=== PATIENT | male | born 1945 | race Caucasian/White ===

== ENCOUNTER 2019-02-08 20:24 | Observation (INO) | payer MEDICARE ==
--- NOTE | 2019-02-08 21:08 | RAD ---
AP CHEST: 02/08/19 HISTORY: Chest pain. COMPARISON: 09/25/14. Mild cardiomegaly. Postop sternotomy changes. The lung pappas are clear. Vasculature normal. IMPRESSION: No acute abnormality. POS: AGW
[2019-02-08 21:38] LABS: #Basophils 0.1 thou/uL (0.0-0.2); #Eosinphils 0.1 thou/uL (0.0-0.7); #Monocytes 0.7 thou/uL (0.11-0.59); #Neutrophils 4.7 thou/uL (1.40-6.50); %Basophils 0.8 % (0.0-1.0); %Eosinophils 1.3 % (0.0-10.0); %Lymphocytes 26.5 % (21.0-51.0); %Monocytes 9.7 % (0.0-10.0); %Neutrophils 61.7 % (42.0-75.0); Hemoglobin 14.4 g/dL (14.0-18.0); Mean Corpuscular HGB CONC 34.2 g/dL (32.0-36.0); Mean Corpuscular Hemoglobin 29.5 pg (27.0-31.0); Mean Corpuscular Volume 86.4 fL (78.0-98.0); Mean Platelet Volume 7.5 fL (7.4-10.4); Platelet Count 215 thou/uL (130-400); RBC Distribution Width 12.5 % (11.5-14.5); Red Blood Cell (RBC) Count 4.88 mill/uL (4.70-6.10); White Blood Cell (WBC) Count 7.6 thou/uL (4.8-10.8)
[2019-02-08 21:59] LABS: ALT (SGPT) 77 U/L (8-55); AST (SGOT) 77 U/L (5-34); Albumin 3.9 g/dL (3.4-4.8); Alkaline Phosphatase 96 U/L (40-150); Anion Gap 15 mmol/L (10-20); BUN (Urea Nitrogen) 30 mg/dL (8.4-25.7); Bilirubin, Total 0.6 mg/dL (0.2-1.2); CK (CPK) 115 U/L (30-200); Calc. Creatinine Clearance 0 mL/min (70-130); Calcium 9.1 mg/dL (7.8-10.44); Carbon Dioxide 32 mmol/L (23-31); Chloride 97 mmol/L (98-107); Estimated GFR-MDRD 75; Globulin 2.7 g/dL (2.4-3.5); Glucose 97 mg/dL (83-110); Protein, Total 6.6 g/dL (5.8-8.1); Sodium 141 mmol/L (136-145)
[2019-02-08 22:06] LABS: Potassium 2.9 mmol/L (3.5-5.1)
[2019-02-09 01:13] LABS: Troponin I 0.013 ng/mL (< 0.028)
[2019-02-09] MEDS ORDERED: HYDROcodone/Acetaminophen 5/325 mg Tablet PO PRN (01:18)
[2019-02-09] MEDS ORDERED: Acetaminophen 325 MG TAB PO PRN (01:18)
[2019-02-09] MEDS ORDERED: Senokot S 8.6-50 MG TAB PO PRN (01:18)
[2019-02-09 04:15] LABS: #Eosinphils 0.1 thou/uL (0.0-0.7); #Monocytes 0.8 thou/uL (0.11-0.59); %Basophils 0.6 % (0.0-1.0); %Eosinophils 1.7 % (0.0-10.0); %Lymphocytes 28.4 % (21.0-51.0); %Monocytes 11.9 % (0.0-10.0); %Neutrophils 57.5 % (42.0-75.0); Hemoglobin 14.1 g/dL (14.0-18.0); Mean Corpuscular HGB CONC 33.2 g/dL (32.0-36.0); Mean Corpuscular Hemoglobin 28.7 pg (27.0-31.0); Mean Corpuscular Volume 86.4 fL (78.0-98.0); Mean Platelet Volume 7.2 fL (7.4-10.4); Platelet Count 214 thou/uL (130-400); RBC Distribution Width 12.5 % (11.5-14.5); Red Blood Cell (RBC) Count 4.91 mill/uL (4.70-6.10)
[2019-02-09 04:24] LABS: INR-International Normal Ratio 1.1; PTT 28.8 SEC (22.9-36.1); Prothrombin Time 14.3 SEC (12.0-14.7)
[2019-02-09 04:35] LABS: Anion Gap 12 mmol/L (10-20); BUN (Urea Nitrogen) 25 mg/dL (8.4-25.7); Calc. Creatinine Clearance 0 mL/min (70-130); Carbon Dioxide 31 mmol/L (23-31); Chloride 100 mmol/L (98-107); Estimated GFR-MDRD 83; Glucose 98 mg/dL (83-110); Potassium 3.1 mmol/L (3.5-5.1); Sodium 140 mmol/L (136-145)
[2019-02-09 04:39] LABS: Troponin I 0.018 ng/mL (< 0.028)
--- NOTE | 2019-02-09 05:43 | HP ---
CHIEF COMPLAINT: Chest pain. HISTORY OF PRESENT ILLNESS: Mr. Brunson is a 74-year-old male who reports to the emergency room today with complaints of chest pain, which started yesterday at 1700 hours. States he has been taking his nitroglycerin prior to arrival, which resolved his chest pain. No shortness of breath. No nausea, vomiting, abdominal pain, or other symptoms, although he does say that when the pain started, he was a little nauseated yesterday. Multiple hospitalizations for cardiac issues, history of an AK in October, which resulted in 4 stents. 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 Tovar at [facility] in [facility] specialized in stent placement with a failed graft. Primary hull line crew member is Dr. Abel in [place]. He reports that chest pain is substernal. Denies any radiation. Denies diaphoresis. Shortness of breath, sharp in nature, described as stabbing, resolved with nitroglycerin. Reports some chronic lower back pain, but no other pain symptoms. The patient's initial two troponins are undetectable. Other pertinent lab values: Potassium which is 2.9. The patient was given some potassium in the emergency room. The patient was subsequently admitted to the [facility] for further management. PAST MEDICAL HISTORY: 1. At least two MIs. 2. Two CABG failed grafts. 3. Placement of four stents in October of 2018. 4. He has had a CVA. 5. He has had a history of atrial fibrillation. 6. Hyperlipidemia. 7. Hypertension. 8. Spinal stenosis. SURGICAL HISTORY: 1. CABG x2. 2. Multiple heart catheterizations. 3. Stent placement x4 in October. 4. Hernia repair. PSYCHIATRIC HISTORY: None. SOCIAL HISTORY: The patient denies any alcohol or drug use. He is a former smoker, quit smoking more than 10 years ago. ALLERGIES: IODINE. HOME MEDICATIONS: 1. Zetia 10 mg 1 tablet once a day. 2. Plavix 75 mg once a day. 3. Amlodipine 10 mg once a day. 4. Hydralazine 100 mg t.i.d. 5. Eliquis 5 mg p.o. b.i.d. FAMILY HISTORY: Pertinent for extensive family history of coronary artery disease. REVIEW OF SYSTEMS: The patient endorses substernal chest pain intermittently since yesterday at 1700 hours, relieved with nitroglycerin. Denies any radiation of pain. Denies diaphoresis. Does report some nausea. Denies abdominal pain, diarrhea, or constipation. Denies any current chest pain. All other systems are reviewed and are negative unless mentioned in the HPI. PHYSICAL EXAMINATION: VITAL SIGNS: Blood pressure is 145/84, respirations 14, temperature is 98.5, pulse ox is 95% on room air. CONSTITUTIONAL: The patient appears pain free, is alert and oriented to person, place, and time. HEENT: Head is atraumatic and normocephalic. Eyes; eyelids are normal to inspection. Pupils are equally round and reactive to light. ENT; pharynx is normal. Mouth exam is normal. Mucous membranes are moist. NECK: Supple. Normal range of motion. Trachea is midline. RESPIRATORY: Chest, breath sounds are clear. CARDIOVASCULAR: Heart rate is irregularly irregular. Heart sounds are normal. ABDOMEN: Nontender. Bowel sounds are heard. BACK: Normal inspection. Normal range of motion. EXTREMITIES: Upper extremity, normal range of motion. Motor strength is normal. Radial pulses equal bilaterally. Lower extremity normal range of motion. Motor strength is normal. Pedal pulse is equal bilaterally. NEURO: Patient is alert and oriented to person, place, and time. Speech is normal. SKIN: Warm, dry, and normal in color. PSYCH: He has a normal affect. IMAGING: EKG shows beats per minute 62, rate of atrial fibrillation with controlled ventricular response. T-waves are flattened. RADIOLOGY: Chest x-ray shows no cardiomegaly and no congestive heart failure. No effusion. No free air. PERTINENT LABORATORY DATA: Sodium is 141, potassium is 2.9, chloride is 97, carbon dioxide is 32, gap is 15, BUN is 30, creatinine is 0.97, estimated GFR is 75, glucose is 97, calcium is 9.1. AST is 77, ALT is 77, alkaline phosphatase is 96. CK is 115, troponin x2 undetectable. BNP 147, protein 6.6. White blood cell count is 7.6, hemoglobin is 14.4, hematocrit is 42.1, and platelet count is 215. Coag panel is pending. ASSESSMENT AND PLAN: 1. Chest pain. We will trend troponins. We will ask [facility] for records from October of 2018 from last hospitalization for stent placements. Medical Auditor there is Dr. Tovar. Dr. Abel is patient's hull line crew member in [place]. We will await records and trending of troponins before consulting Cardiology, which will most likely happen as needed. We will monitor overnight. 2. Hypokalemia. Potassium 40 mEq was given to the patient in the emergency room. We will continue and give 40 mEq b.i.d. We will recheck electrolytes later this morning. 3. Chronic anticoagulation with Plavix and Eliquis. 4. Gastrointestinal prophylaxis has been started. 5. Hospital course will be dependent on clinical findings. Job ID: [id number]
[2019-02-09] MEDS ORDERED: Potassium Chloride 20 MEQ TAB PO SCH (08:00)
[2019-02-09] MEDS ORDERED: Potassium Chloride 20 MEQ TAB ONE (08:47)
[2019-02-09] MEDS ORDERED: Famotidine 20 MG TAB ONE (08:47)
[2019-02-09] MEDS ORDERED: Famotidine 20 MG TAB PO SCH (09:00)
[2019-02-09 11:01] VITALS: BMI 33.7
[2019-02-09 11:02] VITALS: BP 143/77; TEMP 98
[2019-02-09 12:39] LABS: Potassium 3.5 mmol/L (3.5-5.1)
--- NOTE | 2019-02-10 03:23 | DIS ---
DATE OF ADMISSION: 02/08/2019 DATE OF DISCHARGE: 02/09/2019 ALLERGIES: IODINE, STATINS WHICH CAUSE MYALGIA. CHIEF COMPLAINT: Chest pain. FINAL DIAGNOSES: 1. Angina secondary to demand ischemia from recent viral illness and resulting profound hypokalemia, resolved, acute coronary syndrome ruled out. 2. Hypokalemia, 2.9 on arrival, status post repletion, secondary to nausea and vomiting, resolved. 3. Coronary artery disease, followed closely by his scoring machine operator in [place], status post CABG x2 in the past, now status post stents to chronically occluded artery in October of this year, with normal cardiac PET scan in November, currently undergoing EECP treatments on a weekly basis with his scoring machine operator. 4. Hyperlipidemia, statin intolerant. 5. Atrial fibrillation, chronic, elevated CHADS-VASc score, anticoagulated with Eliquis. 6. Ischemic cardiomyopathy, euvolemic, with mild left ventricular dysfunction per the patient, last ejection fraction estimated at 49%. PROCEDURE PERFORMED: None. LABORATORY RESULTS: White blood cell count 7.0, hemoglobin 14.1, hematocrit 42.4, platelet count 214. INR 1.1. Sodium 140, potassium 3.5, previously 2.9 on admission, chloride 100, carbon dioxide 31, anion gap 12, BUN 25, creatinine 0.89, GFR 83. Troponin 0.027, 0.013, 0.018 respectively. AST 77, ALT 77, alkaline phosphatase 96. BNP 147. IMAGING RESULTS: Chest x-ray showed mild cardiomegaly and postop sternotomy changes in lung pappas, no acute abnormality. EKG shows sustained atrial fibrillation. No acute ST- or T-wave changes. CONSULTATIONS: None. VITAL SIGNS: Blood pressure 143/77, pulse is 71, O2 saturation is 96% on room air, temperature is 98 degrees. HOSPITAL COURSE: The patient is a very pleasant 74-year-old male with extensive coronary artery disease history, spanning over the past 30 years, followed closely by his scoring machine operator, who presented to the hospital with complaints of chest pain. Apparently, the patient has been suffering from a fairly severe viral illness that most of his family had caught as well. The patient reports that last Monday, he began vomiting and having diarrhea and this lasted for several days. His and daughter also suffered from the illness. The patient states that he canceled one of his EECP appointments secondary to feeling ill. Given that history, the patient states that he was outside, it was fairly warm, and he was mowing his lawn. He was sitting on his face burler when he began experiencing some chest discomfort. He did take a sublingual nitroglycerin, which did not relieve his pain, he took a second which eased it off, but he continued to have some chest discomfort, so he presented to the ER for further workup and treatment. On arrival, his potassium was fairly low at 2.9. His EKG did not show any dynamic changes. His troponin trended down. The patient felt much improved with IV hydration, and after his potassium was repleted. His presenting symptoms completely resolved. He has had no further chest pain since his arrival, and ACS has been ruled out. PHYSICAL EXAMINATION: GENERAL: The patient is awake, alert, well appearing, in no acute distress. HEENT: Head, atraumatic and normocephalic. Mucous membranes are moist. NECK: No JVD. No carotid bruits. Trachea is midline. CV: S1 and S2. Irregularly irregular. No appreciable murmurs, rubs, or gallops. LUNGS: Regular respiratory rate and pattern. Clear to auscultation bilaterally. ABDOMEN: Positive bowel sounds. Nontender. No masses. EXTREMITIES: No edema. +2 DP pulses bilaterally. SKIN: Warm and dry. No rashes. No discolorations. NEUROLOGIC: Cranial nerves 2 through 12 intact. The patient is nonfocal. CONDITION ON DISCHARGE: Stable. DISCHARGE MEDICATIONS: The patient will continue all of his home medications which include: 1. Eliquis 5 mg b.i.d. 2. Plavix 75 mg daily. 3. Zetia 10 mg daily. 4. Fish oil supplement daily. 5. Lasix 40 mg three times a week, along with potassium supplement daily of 20 mEq daily. 6. Hydralazine 100 mg p.o. b.i.d. p.r.n. 7. Doxazosin 4 mg daily. 8. Multivitamin one tablet daily. DISCHARGE DISPOSITION: Home. PLAN: The patient's cardiac history was discussed at length with the patient, along with his regular visits with his scoring machine operator, of which he has one scheduled next week. The patient has recently had a cardiac PET scan that was negative for ischemia. The patient is unable to take Ranexa secondary to cost and insurance reasons, and has not tolerated long-acting nitrates in the past, and external counterpulsation has worked well for the patient in the past for his angina. He will see his scoring machine operator on Monday in fact. The patient was given the option to stay in the hospital and see a scoring machine operator here, however, given how well his scoring machine operator knows him and close followup within the next few days. The patient wished to be discharged home for further workup by his scoring machine operator. ACS has been ruled out in this patient. His presenting symptoms have all resolved, and I do believe that this episode was brought on by his fairly severe viral illness and his hypokalemia. We will discharge the patient home in good condition today. Care of this patient has been discussed with Dr. Mendoza, who agrees with the above. Job ID: [id number]
== END 2019-02-09 15:45 | disposition home or self-care (01) ==
LOC: ERS 20:24 → ERHOLD 22:20 → 2SW 02-09 10:45
PROVIDERS: ADMIT Hospitalist; ATTEND Hospitalist
DX: B34.9 Viral infection, unspecified (principal); I25.119 Atherosclerotic heart disease of native coronary artery with unspecified angina pectoris; E87.6 Hypokalemia; I25.2 Old myocardial infarction; I48.2 Chronic atrial fibrillation; I25.5 Ischemic cardiomyopathy; G89.29 Other chronic pain; M54.5 Low back pain; I48.91 Unspecified atrial fibrillation; E78.5 Hyperlipidemia, unspecified; I10 Essential (primary) hypertension; M48.062 Spinal stenosis, lumbar region with neurogenic claudication; Z95.5 Presence of coronary angioplasty implant and graft; Z86.73 Personal history of transient ischemic attack (TIA), and cerebral infarction without residual deficits; Z87.891 Personal history of nicotine dependence; Z91.041 Radiographic dye allergy status; Z79.02 Long term (current) use of antithrombotics/antiplatelets; Z79.899 Other long term (current) drug therapy; Z79.01 Long term (current) use of anticoagulants
CPT/HCPCS: 71045; 80048; 80053; 82550; 82962; 83880; 84132; 84484 ×3; 85025 ×2; 85610; 85730; 93005; 97139; 99285; G0378 ×2; 36415; 36416

== ENCOUNTER 2019-04-09 19:09 | Inpatient (IN) | payer MEDICARE ==
[2019-04-09] MEDS ORDERED: Ondansetron PF 4 MG/2 ML Vial ONE (19:28)
[2019-04-09 19:43] LABS: #Lymphocytes 0.5 thou/uL (1.20-3.40); #Monocytes 0.3 thou/uL (0.11-0.59); %Basophils 0.1 % (0.0-1.0); %Eosinophils 0.3 % (0.0-10.0); %Lymphocytes 4.9 % (21.0-51.0); %Monocytes 2.7 % (0.0-10.0); Hemoglobin 13.8 g/dL (14.0-18.0); Mean Corpuscular Hemoglobin 28.6 pg (27.0-31.0); Mean Corpuscular Volume 86.6 fL (78.0-98.0); Mean Platelet Volume 7.3 fL (7.4-10.4); Platelet Count 217 thou/uL (130-400); RBC Distribution Width 13.2 % (11.5-14.5); Red Blood Cell (RBC) Count 4.84 mill/uL (4.70-6.10); White Blood Cell (WBC) Count 9.8 thou/uL (4.8-10.8)
[2019-04-09 19:59] LABS: ALT (SGPT) 326 U/L (8-55); AST (SGOT) 294 U/L (5-34); Alkaline Phosphatase 221 U/L (40-150); Anion Gap 17 mmol/L (10-20); BUN (Urea Nitrogen) 33 mg/dL (8.4-25.7); Bilirubin, Total 3.5 mg/dL (0.2-1.2); CK (CPK) 61 U/L (30-200); Calc. Creatinine Clearance 0 mL/min (70-130); Calcium 8.9 mg/dL (7.8-10.44); Carbon Dioxide 26 mmol/L (23-31); Chloride 94 mmol/L (98-107); Estimated GFR-MDRD 65; Globulin 2.5 g/dL (2.4-3.5); Glucose 149 mg/dL (83-110); Potassium 3.3 mmol/L (3.5-5.1); Protein, Total 6.5 g/dL (5.8-8.1); Sodium 134 mmol/L (136-145)
--- NOTE | 2019-04-09 20:09 | RAD ---
Chest one view HISTORY: Chest pain. COMPARISON: 02/08/2019. FINDINGS: Cardiac silhouette is magnified and enlarged. Pulmonary vasculature more engorged than on t he previous exam. Mediastinum is midline with aortic calcification and postoperative changes. No lobar consolidation or evidence of pneumothorax. IMPRESSION: Cardiomegaly. Mild pulmonary vascular congestion.
--- NOTE | 2019-04-09 21:02 | ULT ---
Sonogram right upper quadrant HISTORY: Abnormal liver function tests. Upper abdomen pain. FINDINGS: Echogenic sludge is present within the dependent portion of the gallbladder lumen. Gallblad cata measures up to 9.3 cm. No gallbladder wall thickening or pericholecystic fluid. Common duct is slightly dilated at 0.8 cm. Liver is diffusely echogenic without focal mass or intrahepatic biliary d ilatation. No free fluid. Right renal cyst is apparent. IMPRESSION: Biliary sludge within the gallbladder is consistent with chronic gallbladder dyskinesis. Mild dilatation of the common duct and distention of the gallbladder suggest possibility of a central biliary obstruction although there were no other findings of acute cholecystitis. Radionucleotide hepatobiliary scan could be used to evaluate for biliary patency if needed. Hepatic steatosis.
[2019-04-09 22:49] VITALS: BMI 32.8
[2019-04-09] MEDS ORDERED: Morphine 4 MG/ML VIAL SLOW IVP PRN (22:50)
[2019-04-09] MEDS ORDERED: Ondansetron ODT 4 MG TAB SL PRN (22:50)
[2019-04-09] MEDS ORDERED: Ondansetron PF 4 MG/2 ML Vial IVP PRN (22:50)
[2019-04-09 23:04] LABS: Troponin I 0.041 ng/mL (< 0.028)
[2019-04-10] MEDS ORDERED: Nitroglycerin 0.4 MG TAB (25 Tab Bottle) ONE (04:36)
[2019-04-10] MEDS ORDERED: Nitroglycerin 0.4 MG TAB (25 Tab Bottle) SL PRN (04:50)
[2019-04-10] MEDS ORDERED: Ondansetron PF 4 MG/2 ML Vial IVP PRN (09:43)
[2019-04-10] MEDS ORDERED: Acetaminophen 325 MG TAB PO PRN (09:43)
[2019-04-10] MEDS ORDERED: Sodium Chloride 0.9% 1,000 ML IV SCH (09:45)
[2019-04-10] MEDS ORDERED: Potassium Chloride 20 MEQ/100 ML PREMIX BAG IVPB SCH (10:15)
[2019-04-10] MEDS ORDERED: Enoxaparin Sodium 100 MG/ML SYRINGE SC SCH ×2 (10:30→21:00)
[2019-04-10] MEDS ORDERED: Clopidogrel Bisulfate 75 MG TAB PO SCH (10:30)
[2019-04-10 10:35] LABS: ALT (SGPT) 353 U/L (8-55); AST (SGOT) 258 U/L (5-34); Albumin 3.5 g/dL (3.4-4.8); Alkaline Phosphatase 234 U/L (40-150); Anion Gap 13 mmol/L (10-20); BUN (Urea Nitrogen) 22 mg/dL (8.4-25.7); Bilirubin, Total 3.8 mg/dL (0.2-1.2); Calc. Creatinine Clearance 84 mL/min (70-130); Calcium 8.5 mg/dL (7.8-10.44); Carbon Dioxide 27 mmol/L (23-31); Chloride 95 mmol/L (98-107); Estimated GFR-MDRD 71; Globulin 2.7 g/dL (2.4-3.5); Glucose 123 mg/dL (83-110); Potassium 3.1 mmol/L (3.5-5.1); Protein, Total 6.2 g/dL (5.8-8.1); Sodium 132 mmol/L (136-145)
--- NOTE | 2019-04-10 12:12 | HP ---
CHIEF COMPLAINT: Nausea and vomiting. HISTORY OF PRESENT ILLNESS: The patient is a 74-year-old male with extensive cardiac history of CAD, status post CABG x2 in the past, stents, hypertension, stroke requiring tPA, AFib, and diabetes, who presents to the hospital with complaints of nausea, vomiting, and chest pain. The patient stated that since he has been discharged from the hospital back in January, which was for nausea and vomiting and he attributed that to a viral infection and low potassium. The patient stated that he has been doing well and has been on a Keto diet in regard to losing weight to maintaining his sugars for diabetes. The patient stated that on Monday after eating a steak, he started having significant amount of nausea and vomiting all night. Following Monday, the patient stated that he felt a little bit better and he was able to tolerate some oral liquids and toast. The patient then stated that he has been eating, has been feeling well. However, yesterday he started having some sharp chest pain and also followed by nausea and vomiting. The patient's was at the bedside and stated that she gave the patient nitro x3, which really did not relieve his pain, so she brought him to the ER for further evaluation. Also, EMS was summoned to bring the patient to the hospital. En route, the patient was given nitro spray, however, again his chest pain was not relieved, so at this time, morphine was given and the patient's pain was relieved. The patient described the pain as sharp in nature around his lower breast area. Denies any diarrhea. Denies any shortness of breath, any fevers or chills. PAST MEDICAL HISTORY: As of the following; 1. The patient has a history of hypertension. 2. History of stroke, requiring tPA. 3. History of CAD, status post CABG x2. 4. History of 4 stents in October of 2018. 5. History of AFib. 6. Hyperlipidemia. 7. Hypertension. 8. Spinal stenosis. 9. Diabetes. PAST SURGICAL HISTORY: He has had CABG x2, multiple heart caths, stents placed x4 in October, and hernia repair. SOCIAL HISTORY: He denies any alcohol use or drug use. He is a former smoker, quit about 10 years ago. He is a full code. Lives with his family. ALLERGIES: HE HAS ALLERGIES TO IODINE. HOME MEDICATIONS: He is currently on; 1. Eliquis 5 mg twice a day. 2. Hydralazine 100 mg t.i.d. 3. Amlodipine 10 mg daily. 4. Plavix 75 mg daily. 5. Zetia 10 mg one p.o. daily. FAMILY HISTORY: Extensive for history of coronary artery disease. REVIEW OF SYSTEMS: All negative except for the ones mentioned above in the HPI. PHYSICAL EXAMINATION: VITAL SIGNS: As of the following; temperature of 97.9 on room air, and blood pressure 133/71. GENERAL: He is awake, alert, oriented x3. Does not appear in any distress. HEENT: Normocephalic, atraumatic. No lymphadenopathy noted. Pupils are equal and reactive to light. CARDIOVASCULAR: S1 and S2 present. No murmurs, rubs, or gallops. LUNGS: Clear to auscultation. No rhonchi or wheezes noted. ABDOMEN: Obese. Bowel sounds are present x2. He does have pain on palpation to his right upper quadrant. Positive Casey's sign. EXTREMITIES: No edema. Pedal pulses are present x2. NEUROVASCULAR: There are no focal deficits noted. SKIN: No cuts, lesions, or bruises noted. LABORATORY RESULTS: As of the following; WBCs of 9.8, hemoglobin of 13.8, hematocrit of 41.9, and platelets of 217. Chemistries; sodium of 134, potassium of 3.3, BUN of 33, and creatinine of 1.11. His total bili was 3.5, AST of 294, ALT of 326, and alkaline phosphatase of 221. Glucose of 149. His BNP was 142. His troponin initially was negative, however, the 2nd and the 3rd were indeterminate. His lipase was 32. Magnesium was 2.0. CK was 61. IMAGING DATA: The patient did have a right upper quadrant ultrasound, which indicated biliary sludge with gallbladder consistent with chronic gallbladder dyskinesia, mild dilation of the common bile duct and distention of the gallbladder suggesting possibly of central biliary obstruction, although there were no other findings of acute cholecystitis and hepatic steatosis. Chest x-ray did not show any acute abnormalities upon my interpretation. ASSESSMENT AND PLAN: The patient is a 74-year-old male, who presents to the hospital with complaints of nausea, vomiting, and chest pain. 1. Atypical chest pain, most likely secondary to a gallbladder etiology. I will keep the patient n.p.o. He is on Plavix and Eliquis. His last Eliquis was yesterday in the day, which was the 25th during the day time. Given his high risk and recent stents, I will continue the Plavix and I will continue him on Lovenox. Most likely the patient will require surgery and if he does, I will also consult Cardiology for clearance given his extensive history. 2. Nausea and vomiting, most likely secondary to gallbladder disease. I do not think at this time the patient requires any antibiotics. I will wait for surgical evaluation and a GI evaluation. Also, we will order a HIDA scan. In the meantime, I have ordered some additional lab test and also we will get Cardiology for clearance. 3. History of coronary artery disease. I will continue his Plavix and I will continue his Lovenox shots. Currently, the patient has no chest pain. He also recently had an echocardiogram, which was done at his machine operators's office, who was in [place]. I will get a hold of him. His name is Dr. Abner Abel, phone #[phone] to get a little bit more information or maybe the echo report. 4. History of hypertension. We will hold off on his blood pressure medications as his blood pressure currently is stable. 5. History of hyperlipidemia. Again, we will hold off on any of his other additional medications. We will only continue the Plavix and his Lovenox right now. Job ID: [id number]
[2019-04-10] MEDS ORDERED: Morphine 2 MG/ML SYRINGE ONE (14:06)
[2019-04-10] MEDS ORDERED: Sodium Chloride 0.9% 10 ML ONE (14:06)
[2019-04-10] MEDS ORDERED: Heparin 5,000 UNITS/ML VIAL SC SCH (15:00)
--- NOTE | 2019-04-10 15:43 | NM ---
EXAM: Nuclear medicine hepatobiliary scan HISTORY: Epigastric pain and elevated LFTs TECHNIQUE: A nuclear medicine hepatobiliary scan was performed after administration of 5 mCi of techn etium 99m mebrofenin. Morphine was given at 1 hour to try to stimulate filling of the gallbladder. COMPARISON: Gallbladder ultrasound 04/09/2019 FINDINGS: Prompt uptake of the radiopharmaceutical by the liver is seen. No photopenic liver defects are seen. The liver retains the radiopharmaceutical without significant washout and there is persistent blood pool activity extending out greater than 15 minutes. Biliary activity is not seen. Gallbladder activity is not seen. Bowel activity is not seen. IMPRESSION: The findings above are consistent with either severe common bile duct obstruction or hepatocellular d ysfunction. Given the lack of significant bile duct obstruction on ultrasound, the latter is favored. The 7 mm common bile duct on ultrasound is likely normal for a patient of this age.
[2019-04-10 16:26] LABS: Hemoglobin 13.6 g/dL (14.0-18.0); Platelet Count 196 thou/uL (130-400)
--- NOTE | 2019-04-10 18:00 | CON ---
DATE OF CONSULTATION: 04/10/2019 REQUESTING PHYSICIAN: Linda Yu MD HISTORY OF PRESENT ILLNESS: This is a 74-year-old man, who was admitted following insidious onset malaise and multiple episodes of nonbilious emesis, which started 3 days previously. The patient then developed a sudden-onset severe epigastric abdominal pain without radiation yesterday afternoon approximately at 5 p.m. Prior to that, he had had lunch consisting of chicken sandwich. The day before, the patient had a steak dinner. He described his pain yesterday as sharp, rated at 9-10/10. He took sublingual nitroglycerin without any relief. Currently, the patient reports 2-3/10 pain since receiving morphine sulfate this morning. He denies any fevers or chills. PAST MEDICAL HISTORY: Significant for coronary artery disease, of which the patient is status post myocardial infarction x2; he is also status post cerebrovascular accident, though with no residual neurological deficits. Other past medical history includes essential hypertension, hyperlipidemia, and spinal stenosis. PAST SURGICAL HISTORY: Significant for coronary artery bypass graft and multiple cardiac catheterizations, last of which was in October of 2018 with 4 coronary arterial stent placements. He is also status post laparoscopic umbilical herniorrhaphy. SOCIAL HISTORY: The patient is . Lives at home with his . He is retired and is a former smoker, consisting of a 10-pack year, although he has not smoked over the last 30 years. He denies any ethanol or illicit drug abuse. FAMILY HISTORY: Noncontributory for this patient's age. ALLERGIES: IODINE. REVIEW OF SYSTEMS: Ten-point review of systems is essentially unremarkable except as stated in past medical history and chief complaint. PHYSICAL EXAMINATION: GENERAL: Reveals a 74-year-old, normally developed man, who is otherwise coherent and interactive and appears stated age. The patient is alert and oriented x3, appears to be in no acute distress at the time of my evaluation. VITAL SIGNS: Today include blood pressure 128/78, pulse 76, respiratory rate is 14, temperature 99.6 degrees Fahrenheit, oxygen saturation is 95% on 2 L by nasal cannula oxygen. HEENT: Reveals normocephalic and atraumatic. Pupils are equal, round, reactive to light and accommodation. He has no scleral icterus present. NECK: He has no jugular venous distention noted. HEART: Reveals regular rate and rhythm. No murmurs or gallops auscultated. LUNGS: Clear to auscultation bilaterally. Breathing, regular and nonlabored. ABDOMEN: Soft, nontender, and nondistended. Liver and spleen nonpalpable below costal margin. EXTREMITIES: Reveal 2+ radial and pedal pulses bilaterally. No ankle edema is present. NEUROLOGIC: Reveals no focal deficits present. LABORATORY FINDINGS: Today include a CBC with 9800 white blood cells, hemoglobin and hematocrit 13.8 and 41.9 respectively. Platelet count is 217,000. Metabolic profile; sodium 132, potassium is 3.1, chloride is 95, bicarb 27, BUN 22, creatinine is 1.02, glucose 123, total bilirubin is 3.8. AST and ALT are also elevated at 258 and 353 respectively. Alkaline phosphatase is also elevated at 234. Serum lipase is normal at 32. I have personally reviewed the abdominal ultrasound, which was obtained yesterday revealing biliary sludge within the gallbladder lumen. The common bile duct size is upper limit of normal for this patient's age at 8 mm in diameter. There is no pericholecystic fluid or significant gallbladder wall thickening present. IMPRESSION: 1. Probable chronic cholecystitis with no radiographic or clinical evidence of acute cholecystitis. 2. Acute transaminitis, likely viral in etiology versus acute biliary disease. 3. History of severe coronary artery disease. RECOMMENDATIONS: We will obtain HIDA scan to better rule out any biliary obstruction versus chronic biliary dysfunction. At this time, there is no acute surgical indication for this patient. However, if the HIDA scan indicates, we will give consideration to laparoscopic cholecystectomy. I have advised the patient that should cholecystectomy be undertaken, he faces a risk for bleeding, infection, injury to bile duct or surrounding structures. Given his comorbidities, he faces additional risk for perioperative myocardial infarction or cerebrovascular accident. This information was given to the patient and his at bedside. The patient indicates understanding of information given. I have answered his questions. Thank you again, Dr. Yu, for allowing me the opportunity to participate in the care of this patient. Job ID: [id number]
[2019-04-10] MEDS: Sodium Chloride 0.9% 1,000 ML IV SCH (18:30)
[2019-04-10] MEDS: Heparin 25,000 units/D5W 500 ML IVPB SCH (18:34)
[2019-04-10] MEDS: Heparin 10,000 UNITS/ 10 ML VIAL SLOW IVP SCH (19:14)
[2019-04-10] MEDS: Amlodipine 5 MG TAB PO SCH (20:56)
[2019-04-10] MEDS: Ezetimibe 10 MG TAB PO SCH (20:56)
[2019-04-10] MEDS ORDERED: Amlodipine 10 MG TAB PO SCH (21:00)
--- NOTE | 2019-04-10 22:56 | CON ---
DATE OF CONSULTATION: 04/10/2019 REASON FOR CONSULTATION: Chest pain and abnormal liver profile. HISTORY OF PRESENT ILLNESS: Mr. Brunson is a 74-year-old male with known coronary artery disease who was in his usual state of health until yesterday afternoon when he developed sudden onset of sharp stabbing chest pain that localized to the right of the lower sternum. The pain is sharp and without any radiation. He also reports having a dull periumbilical pain. He did have some nausea, vomiting, and mostly dry heaving associated with the pain. He took 4 nitroglycerin at home without any relief. EMS was summoned. He received additional nitroglycerin and morphine during the ambulance ride. His pain did subside and resolve during the ambulance ride. The pain is different from his typical anginal type pain before. Currently, he is pain free. He denies having had having had any antecedent gastrointestinal problem. On admission, he did have an ultrasound that showed distended gallbladder with common bile duct measuring 8 mm. There was no pericholecystic fluid or gallbladder wall thickening. HIDA scan performed this afternoon did not show visualization of gallbladder despite morphine with scan time up to 130 minutes. Currently, he is pain free. His GI review of system was otherwise unremarkable. PAST MEDICAL HISTORY: 1. Coronary artery disease, status post CABG and stent placement. 2. Hypertension. 3. History of CVA, requiring tPA. 4. History of atrial fibrillation. 5. Hyperlipidemia. 6. Hypertension. 7. Adult onset diabetes. 8. Spinal stenosis. SOCIAL HISTORY: The patient is , lives with his . Has no tobacco or alcohol usage. He is a former smoker. FAMILY HISTORY: Negative for any known GI problem, liver disease, or GI malignancy. ALLERGIES: INCLUDE IODINE. MEDICATION AT HOME: Include multivitamin, Zaroxolyn 5 mg every other day, Lasix 20 mg every other day, doxazosin 4 mg b.i.d., Zetia 10 mg at bedtime, Plavix 75 mg daily, amlodipine 5 mg b.i.d., Eliquis 5 mg p.o. b.i.d., last dose yesterday morning. REVIEW OF SYSTEMS: A 10-point review of systems did not show any other pertinent positives or negatives. PHYSICAL EXAMINATION: VITAL SIGNS: Temperature is 99.6, blood pressure 128/78, pulse of 76. GENERAL: He is alert, conversant, sitting up in bed without any apparent distress. HEENT: Shows anicteric sclerae. Oropharynx is clear. NECK: Supple. CV: Shows normal S1, S2. Regular rate and rhythm. CHEST: Shows breath sounds clear to auscultation. ABDOMEN: Shows protuberant abdomen. There is moderate focal tenderness to medial right upper quadrant, but no guarding or rebound. He has active bowel sounds. Organomegaly are difficult to assess secondary to size. EXTREMITIES: Show no edema. LABORATORY DATA: WBCs 9.8, hemoglobin 13.8, and platelet count of 217. Sodium 132, potassium 3.1, chloride 95, CO2 of 27, creatinine 1.02, BUN of 22, bilirubin of 3.8, AST of 258, ALT 353, alkaline phosphatase 234. BNP 142. Troponin I peaked highest at 0.041. Abdominal ultrasound showed distended gallbladder without any wall thickening or pericholecystic fluid. Common duct measures 8 mm. HIDA scan did not show any gallbladder activity even without morphine with scan carried out to 120 minutes. ASSESSMENT: 1. Clinical presentation of sharp right lateral sternum pain that is different from his previous cardiac pain associated with nausea and vomiting along with periumbilical pain along with abnormal liver profile, ultrasound, and HIDA scan not demonstrating gallbladder activity at 2 hours, all suggestive of cholecystitis. The patient is currently relatively asymptomatic with a fairly benign exam. He does not appear toxic. He does have low-grade fever, but without any leukocytosis. 2. Coronary artery disease. 3. Atrial fibrillation. 4. Diabetes. 5. Hypertension. RECOMMENDATION: 1. General surgery evaluation for cholecystectomy. 2. The patient is currently on Plavix, but last dose of Eliquis was yesterday. Eliquis should be held for two or more days before surgery, which will make him ready for tomorrow. 3. Despite having very low-grade fever but without any leukocytosis and the patient is relatively asymptomatic and does not appear toxic, there is no need for any antibiotic coverage at this time. 4. No further GI test evaluation is needed at the present time. We will follow. Job ID: [id number]
--- NOTE | 2019-04-11 00:03 | CON ---
DATE OF CONSULTATION: PRIMARY MONEY EXAMINER: Saulo Johnson MD REASON FOR CONSULTATION: Preoperative evaluation. HISTORY OF PRESENT ILLNESS: Mr. Martínez Brunson is a 74-year-old gentleman. The patient has extensive history of coronary artery disease and congestive heart failure and now has problems with his gallbladder may need surgery. We have been asked to see him about preoperative evaluation. Mr. Brunson was seen by Dr. Johnson here in September 2014. At that time, the patient was admitted with ischemic stroke and also had bradycardia. He had received tPA. He had improvement in his symptoms with tPA. The patient has a history of bypass surgery on 2 occasions in 1988 and redo in 2003. He has a history of congestive heart failure and the ejection fraction is 20% to 25% range. The patient initially had paroxysmal atrial fibrillation, now appears to be in chronic atrial fibrillation. The patient also has a history of coronary artery disease, apparently had intractable angina and that underwent multiple stent implantations at [facility] in [place] in September of this year. Fortunately, the family does have the cards available on that intervention. The patient had 4 stents placed in the circumflex vessel. It appears that there was a 2.5 x 23 mm stent placed in the ramus, 2.25 x 28 mm placed in the circumflex and then a 2.5 x 28 an additional stent in the circumflex, and a 3.0 x 15 in the circumflex according to the notes. The patient states his angina resolved after those interventions. The patient is not having chest pain and he is breathing okay, doing stable from a cardiac standpoint. MEDICATIONS: At home included; 1. Hydralazine 100 mg if needed. 2. Amlodipine 5 mg twice a day. 3. Doxazosin 4 mg a day. 4. Clopidogrel 75 mg a day. 5. Apixaban 5 mg twice a day, last dose yesterday morning. 6. Potassium. 7. Metolazone with iodine. SOCIAL HISTORY: He has a very supportive . No alcohol or tobacco abuse. REVIEW OF SYSTEMS: CONSTITUTIONAL: No significant weight gain or loss. VISION: No changes. HEARING: No changes. PULMONARY: No cough or wheezing. CARDIAC: No chest pain. GASTROINTESTINAL: Abdominal distention is present. SKIN: No rashes. NEUROLOGIC: No unilateral weakness or numbness. PSYCHIATRIC: No unusual depression or anxiety. HEMATOLOGIC: No unusual bruising. GENITOURINARY: No burning with urination. PHYSICAL EXAMINATION: GENERAL: This is a pleasant gentleman, 5 feet 7 inches tall, 209 pounds. HEENT: Eyes, sclerae nonicteric. Mouth, mucous membranes moist. NECK: Supple. No lymphadenopathy. LUNGS: Clear. CARDIAC: Irregularly irregular. HEART: Heart sounds are distant. I do not hear murmur, rub, or gallop. ABDOMEN: Obese, nontender, appears distended. EXTREMITIES: No clubbing or cyanosis. There is no significant edema. SKIN: Warm and dry. PSYCHIATRIC: Mood and affect normal. NEUROLOGIC: Grossly normal. PERTINENT LABORATORY DATA: AST is 258, ALT 353, bilirubin 3.8. Potassium is 3.1. EKG reveals atrial fibrillation with chronic pattern with controlled heart rate. Please see the imaging from the abdominal structures including nuclear medicine imaging. The abdominal ultrasound indicates biliary sludge. ASSESSMENT: 1. Biliary sludge. 2. Possible obstruction of the gall bladder drainage system resulting in hepatic insufficiency. 3. Chronic atrial fibrillation. 4. Coronary artery disease. 5. Bypass on 2 occasions. 6. Recent stent implantations in [place]. PLAN: 1. Unless it is emergency which like that is not currently, we have to wait at least 1 further day off the Eliquis before proceeding to surgery. 2. Echocardiogram to be done to evaluate ejection fraction. 3. Dr. Johnson will resume care tomorrow. Further recommendations after the echo are done. Only about 25% of the drug is excreted by the kidneys, therefore it could be appropriate to wait at least 1 further day prior to going to surgery. We will increase intravenous fluid rate. Dr. Johnson will resume care tomorrow. Job ID: [id number]
[2019-04-11] MEDS: Heparin 10,000 UNITS/ 10 ML VIAL SLOW IVP SCH ×3 (01:29→18:19)
[2019-04-11 05:24] LABS: #Basophils 0.1 thou/uL (0.0-0.2); #Eosinphils 0.1 thou/uL (0.0-0.7); #Lymphocytes 1.3 thou/uL (1.20-3.40); #Monocytes 0.8 thou/uL (0.11-0.59); #Neutrophils 5.1 thou/uL (1.40-6.50); %Basophils 0.7 % (0.0-1.0); %Eosinophils 0.8 % (0.0-10.0); %Lymphocytes 17.3 % (21.0-51.0); %Monocytes 11.5 % (0.0-10.0); %Neutrophils 69.8 % (42.0-75.0); Hemoglobin 12.1 g/dL (14.0-18.0); Mean Corpuscular HGB CONC 33.5 g/dL (32.0-36.0); Mean Corpuscular Hemoglobin 29.3 pg (27.0-31.0); Mean Corpuscular Volume 87.5 fL (78.0-98.0); Mean Platelet Volume 7.4 fL (7.4-10.4); Platelet Count 177 thou/uL (130-400); Red Blood Cell (RBC) Count 4.14 mill/uL (4.70-6.10); White Blood Cell (WBC) Count 7.4 thou/uL (4.8-10.8)
[2019-04-11 05:50] LABS: ALT (SGPT) 284 U/L (8-55); AST (SGOT) 134 U/L (5-34); Albumin 3.5 g/dL (3.4-4.8); Alkaline Phosphatase 236 U/L (40-150); Bilirubin, Direct 2.5 mg/dL (0.1-0.3); Bilirubin, Total 3.5 mg/dL (0.2-1.2); Protein, Total 6.2 g/dL (5.8-8.1)
[2019-04-11 05:52] LABS: ALT (SGPT) 283 U/L (8-55); AST (SGOT) 134 U/L (5-34); Albumin 3.5 g/dL (3.4-4.8); Alkaline Phosphatase 233 U/L (40-150); Anion Gap 15 mmol/L (10-20); BUN (Urea Nitrogen) 16 mg/dL (8.4-25.7); Bilirubin, Total 3.5 mg/dL (0.2-1.2); Calc. Creatinine Clearance 99 mL/min (70-130); Calcium 8.5 mg/dL (7.8-10.44); Carbon Dioxide 25 mmol/L (23-31); Chloride 96 mmol/L (98-107); Estimated GFR-MDRD 86; Globulin 2.6 g/dL (2.4-3.5); Glucose 121 mg/dL (83-110); Potassium 3.1 mmol/L (3.5-5.1); Protein, Total 6.1 g/dL (5.8-8.1); Sodium 133 mmol/L (136-145)
[2019-04-11] MEDS: Sodium Chloride 0.9% 1,000 ML IV SCH ×2 (06:01→18:08)
[2019-04-11] MEDS: Clopidogrel Bisulfate 75 MG TAB PO SCH (09:51)
[2019-04-11] MEDS: Amlodipine 5 MG TAB PO SCH ×2 (09:51→21:24)
[2019-04-11 10:25] LABS: Hep B Core Total Ab Non-Reactive (NonReactive); Hep B Core Total Index 0.14 S/CO (0-0.79)
[2019-04-11 10:26] LABS: HBSAg Index 0.27 S/CO (0-0.99); Hep B Surf Ag Non-Reactive S/CO (NonReactive); Hep C IgG Ab Non-Reactive (NonReactive)
[2019-04-11 10:27] LABS: Hep A IgM AB Non-Reactive (NonReactive); Hep A IgM S/CO 0.23 S/CO (0-0.79)
[2019-04-11 10:28] LABS: HBCM Index 0.05 S/CO (0-0.79); Hepatitis B Core IgM Abs Non-Reactive (NonReactive)
--- NOTE | 2019-04-11 14:32 | PRG ---
DATE OF SERVICE: 04/11/2019 SUBJECTIVE: The patient was seen this morning, sitting up in chair with nasal cannula oxygen in place. Reported pain was well controlled. He has been tolerating a clear liquid diet. No bowel movements. He has been voiding without difficulties. GI symptoms have greatly improved. The patient completed HIDA scan yesterday. OBJECTIVE: VITAL SIGNS: Temperature 97.5, pulse 71, respirations 15, oxygen saturation 98% on 2 L nasal cannula, and blood pressure 140/66. GENERAL: Well-appearing elderly male, sitting up in bed with nasal cannula in place and no signs of acute respiratory distress. PULMONARY: Equal chest rise and fall. Clear breath sounds bilaterally. No signs of acute respiratory distress. CARDIAC: Regular rate and rhythm. No murmurs, gallops, or rubs. GI: Abdomen is soft, nondistended. Minimally tender to palpation. No signs of peritonitis. EXTREMITIES: 2+ pulses in all extremities. No significant swelling noted. Gross motor and sensation intact. NEUROLOGIC: GCS is 15. Pupils equal, round, reactive to light bilaterally. LABORATORY FINDINGS: White count 7.4, hemoglobin 12.1, hematocrit 36.2, and platelets 177. Sodium 133, potassium 3.1, chloride 96, carbon dioxide 25, BUN 16, creatinine 0.87, glucose 121, total bilirubin 3.5, AST 134, ALT 285, and alkaline phosphatase 233. DIAGNOSTIC FINDINGS: HIDA scan completed yesterday demonstrates the findings above are consistent with either severe common bile duct obstruction or hepatocellular dysfunction. Given the lack of significant bile duct obstruction on ultrasound , the latter is favored. The 7-mm common bile duct on ultrasound is likely normal for a patient of this age. ASSESSMENT: 1. Suspected choledocholithiasis and probable chronic cholecystitis. 2. Severe common bile duct obstruction versus hepatic dysfunction. 3. Transaminitis. RECOMMENDATIONS: The patient's abdominal exam and symptoms are not very impressive at this time. The HIDA scan could not clearly identify if the patient had a ductal obstruction versus a severe hepatic dysfunction. Because there are no acute symptoms, we will continue to hold off for surgery at this time. Cardiology is on board and also recommends further holding off as the patient was on Eliquis, and he also needs an echo to be completed. We will send off hepatitis profile today. We have also asked the pharmacist to look into hepatotoxicity of the patient's medication. There may be some advantages to completing ERCP. Dr. Mock will speak with GI for recommendations. There will be no surgery today. The patient was seen and examined by Dr. Mock and myself this morning during rounds. Job ID: [id number] MTDD
--- NOTE | 2019-04-11 15:28 | PRG ---
DATE OF SERVICE: 04/11/2019 SUBJECTIVE: The patient feels fine today, denies having abdominal pain. He tolerated a regular lunch without any pain, nausea, or vomiting. There is no chest pain. PHYSICAL EXAMINATION: VITAL SIGNS: Temperature is 98.5, blood pressure 129/73, pulse of 76. GENERAL: He is alert, conversant, does not appear to be in any distress. HEENT: Exam shows anicteric sclerae. Oropharynx is moist. CV: Exam shows normal S1 and S2. Regular rate and rhythm. CHEST: Exam shows a breath sounds clear to auscultation. ABDOMEN: Protuberant, but soft and nontender. No tympany. No distention. There is no tenderness. He has active bowel sounds. EXTREMITIES: Exam shows no edema. LABORATORY DATA: WBC 7.4, hemoglobin 12.1, hematocrit 36.2, and platelet count of 177. Electrolytes within normal range (potassium 3.1), creatinine is 0.87, bilirubin is 3.5, AST 134, ALT 283, alkaline phosphatase 233. ASSESSMENT: 1. Atypical chest pain/abdominal pain, resolved. Clinical symptoms yesterday suggestive of cholecystitis, however, the patient is currently totally asymptomatic and tolerates diet well without any pain. His presenting symptoms of chest pain have resolved. Elevation of liver profile remained stable and appears to be trending downward slightly. There is no evidence of biliary obstruction on ultrasound other than common duct measuring 7 to 8 mm without any intrahepatic biliary ductal dilatation. I doubt that he has any biliary obstructive process. 2. Coronary artery disease. 3. Atrial fibrillation. 4. Diabetes. 5. Hypertension. RECOMMENDATION: 1. Agree with holding off cholecystectomy at this point as there is no clinical indication. 2. We will obtain MRCP to rule out any biliary obstruction. 3. Continue with conservative management and expectant observation. Job ID: [id number]
[2019-04-11] MEDS: Heparin 25,000 units/D5W 500 ML IVPB SCH (16:11)
--- NOTE | 2019-04-11 18:47 | PDOC.PN ---
- Subjective Encounter Start Date: 04/11/19 Encounter Start Time: 10:35 Feeling well. No abdominal pain. Planning to each lunch. - Objective Resuscitation Status - Order Detail: 04/10/19 09:43 Resuscitation Status Routine Resuscitation Status: FULL: Full Resuscitation Vital Signs & Weight: Vital Signs (12 hours) Temp Pulse Resp BP Pulse Ox 04/11/19 16:22 99.5 F 86 15 116/72 94 L 04/11/19 12:07 98.5 F 76 14 129/73 96 04/11/19 08:00 97.5 F L 71 15 140/66 98 Weight Weight 214 lb 3.2 oz I&O: 04/10/19 04/11/19 04/12/19 06:59 06:59 06:59 Intake Total 3840 1560 Balance 3840 1560 Result Diagrams: 04/11/19 04:45 04/11/19 04:45 Phys Exam - Physical Examination Constitutional: NAD Respiratory: no wheezing, no rales, no rhonchi Cardiovascular: RRR, no significant murmur Gastrointestinal: soft, non-tender, no distention, positive bowel sounds Musculoskeletal: no edema Neurological: non-focal Psychiatric: normal affect, A&O x 3 Dx/Plan (1) Abdominal pain Code(s): R10.9 - UNSPECIFIED ABDOMINAL PAIN Status: Acute (2) Transaminitis Code(s): R74.0 - NONSPEC ELEV OF LEVELS OF TRANSAMNS & LACTIC ACID DEHYDRGNSE Status: Acute (3) Hypokalemia Code(s): E87.6 - HYPOKALEMIA Status: Acute (4) CAD (coronary artery disease) Code(s): I25.10 - ATHSCL HEART DISEASE OF [place] CORONARY ARTERY W/O ANG PCTRS Status: Acute (5) Atrial fibrillation Code(s): I48.91 - UNSPECIFIED ATRIAL FIBRILLATION Status: Acute - Plan * Severe CAD and afib * Abdominal pain with transaminitis. Concern for cholecystitis. * Holding eliquis. On heparin gtt. * Continuing Plavix. * Numbers and pain are better today. * Surgery put on hold given the improvement and high risk nature of the patient. * Will see how he feels after eating.
[2019-04-11] MEDS ORDERED: Potassium Chloride 20 MEQ TAB PO SCH (19:00)
--- NOTE | 2019-04-11 19:03 | PDOC.CTH ---
Cardiology Progress Note - Subjective Abdominal pain has improved. No other issues. - Objective Vital Signs Temp Pulse Resp BP Pulse Ox 04/11/19 16:22 99.5 F 86 15 116/72 94 L 04/11/19 12:07 98.5 F 76 14 129/73 96 04/11/19 08:00 97.5 F L 71 15 140/66 98 Weight 214 lb 3.2 oz 04/10/19 04/11/19 04/12/19 06:59 06:59 06:59 Intake Total 3840 1560 Balance 3840 1560 - Physical Examination General/Neuro: alert & oriented x3, NAD Neck: no JVD present Lungs: CTA, unlabored respirations Heart: RRR Abdomen: NT/ND Extremities: other: (no edema) - Telemetry Telemetry Rhythm: NSR - Labs Result Diagrams: 04/11/19 04:45 04/11/19 04:45 Troponin/CKMB Troponin I 0.040 ng/mL (< 0.028) H 04/10/19 01:41 - Assessment/Plan 1. Possible common bile duct obstructioin 2. Recent stent implantation in [place]. 3. Chronic afib 4. S/P CABG twice in the past. PLAN: - CV stable - Replace K - For MRCP tomorrow.
[2019-04-11] MEDS: Ezetimibe 10 MG TAB PO SCH (21:24)
[2019-04-12] MEDS: Heparin 10,000 UNITS/ 10 ML VIAL SLOW IVP SCH ×2 (01:04→13:29)
[2019-04-12 06:10] LABS: ALT (SGPT) 189 U/L (8-55); AST (SGOT) 58 U/L (5-34); Albumin 3.2 g/dL (3.4-4.8); Alkaline Phosphatase 205 U/L (40-150); Anion Gap 11 mmol/L (10-20); BUN (Urea Nitrogen) 14 mg/dL (8.4-25.7); Bilirubin, Total 1.9 mg/dL (0.2-1.2); Calc. Creatinine Clearance 108 mL/min (70-130); Calcium 8.2 mg/dL (7.8-10.44); Carbon Dioxide 25 mmol/L (23-31); Chloride 101 mmol/L (98-107); Estimated GFR-MDRD Greater than 90; Globulin 2.7 g/dL (2.4-3.5); Glucose 120 mg/dL (83-110); Potassium 3.3 mmol/L (3.5-5.1); Protein, Total 5.9 g/dL (5.8-8.1); Sodium 134 mmol/L (136-145)
[2019-04-12] MEDS ORDERED: Lorazepam 2 MG/ML VIAL SLOW IVP SCH (08:15)
[2019-04-12] MEDS: Sodium Chloride 0.9% 1,000 ML IV SCH (08:21)
[2019-04-12] MEDS: Amlodipine 5 MG TAB PO SCH (08:22)
[2019-04-12] MEDS: Clopidogrel Bisulfate 75 MG TAB PO SCH (08:22)
[2019-04-12] MEDS: Heparin 25,000 units/D5W 500 ML IVPB SCH (08:23)
[2019-04-12] MEDS ORDERED: Potassium Chloride 40 MEQ in Sodium Chloride 0.9% 250 ML 250 ML IVPB SCH (08:45)
[2019-04-12] MEDS ORDERED: Furosemide 20 MG TAB PO SCH (09:00)
--- NOTE | 2019-04-12 09:45 | EKG ---
Test Reason : CP Blood Pressure : / mmHG Vent. Rate : 101 BPM Atrial Rate : 101 BPM P-R Int : 196 ms QRS Dur : 082 ms QT Int : 448 ms P-R-T Axes : 023 -09 119 degrees QTc Int : 580 ms Atrial fibrillation Low voltage QRS Inferior infarct , age undetermined Cannot rule out Anterior infarct , age undetermined Abnormal ECG Similar to 02/09/2019 Motion artifact Confirmed by EZEQUIEL AVILA DO ([id number]), videotape editor LONNY CHAN ([id number]) on 04/12/2019 9:45:22 AM Referred By: S Confirmed By:EZEQUIEL AVILA DO
--- NOTE | 2019-04-12 14:00 | PRG ---
DATE OF SERVICE: 04/12/2019 SUBJECTIVE: The patient feels well, denies having any abdominal or chest pain. He is eating well without nausea vomiting. He did not want to do the MRCP because of severe claustrophobia. OBJECTIVE: VITAL SIGNS: Temperature 99.1, blood pressure 116/60, pulse of 85. GENERAL: He is alert, sitting up, conversant. No distress. HEENT: Shows anicteric sclerae. NECK: Supple. CV: Shows normal S1 and S2. Regular rate and rhythm. CHEST: Shows a breath sounds. ABDOMEN: Protuberant, but soft. No distention. No tympany. No tenderness. He has active bowel sounds. EXTREMITIES: Show no edema. LABORATORY DATA: Electrolytes within normal range. Creatinine 0.82. Bilirubin down to 1.9, AST 58, ALT 189, and AST 305. Hepatitis panel negative. ASSESSMENT: 1. Atypical chest pain/abdominal pain, resolved. His liver profile continues to trend downward. Clinically, he is doing well without any signs or symptoms suggestive of gallbladder disease or biliary ductal disease at the present time. Etiology is not known, I suspect he may have had some degree of cholecystitis that is resolving. No evidence of significant biliary obstruction on ultrasound, although I am hoping magnetic resonance cholangiopancreatography would be a more definitive test. 2. Coronary artery disease. 3. Atrial fibrillation. 4. Hypertension. 5. Diabetes. RECOMMENDATIONS: 1. No new recommendation from GI standpoint. If the patient continues to do well clinically and the liver tests continue to normalize, can be discharged to home from GI standpoint. 2. Dr. Glass is on-call for GI Service this weekend. Job ID: [id number]
[2019-04-12] MEDS ORDERED: Apixaban 5 MG TAB PO SCH (14:15)
[2019-04-12 15:47] VITALS: BP 121/68; TEMP 97.7
--- NOTE | 2019-04-12 17:19 | PDOC.CTH ---
Cardiology Progress Note - Subjective No chest pain. Could not do MRCP due to claustrophobia. - Objective Vital Signs Temp Pulse Resp BP Pulse Ox 04/12/19 15:46 97.7 F 77 16 121/68 95 04/12/19 12:00 98.5 F 75 18 112/64 93 L 04/12/19 08:22 72 04/12/19 08:00 94 L 04/12/19 07:51 98.2 F 72 17 106/60 94 L Weight 216 lb 14.4 oz 04/11/19 04/12/19 04/13/19 06:59 06:59 06:59 Intake Total 1560 1300 Balance 1560 1300 - Physical Examination General/Neuro: alert & oriented x3, NAD Neck: no JVD present Lungs: CTA, unlabored respirations Heart: RRR Abdomen: NT/ND Extremities: other: (no edema.) - Telemetry Telemetry Rhythm: NSR - Labs Result Diagrams: 04/11/19 04:45 04/12/19 05:35 Troponin/CKMB Troponin I 0.040 ng/mL (< 0.028) H 04/10/19 01:41 - Assessment/Plan 1. Possible common bile duct obstructioin 2. Recent stent implantation in [place]. 3. Chronic afib 4. S/P CABG twice in the past. PLAN: - CV stable - May discharge from cardiac perspective any time. - He has a follow up appointment already set up with his [facility] in [place].
[2019-04-14] MEDS ORDERED: Metolazone 5 MG TAB PO SCH (08:30)
--- NOTE | 2019-04-15 16:36 | PRG ---
DATE OF SERVICE: 04/12/2019 SUBJECTIVE: The patient was seen today, sitting down, comfortable. The patient did not voice any complaints of pain, nausea, vomiting, or fever. The patient is well tolerated with regular diet. The patient is able to void by himself. OBJECTIVE: VITAL SIGNS: Temperature 98, pulse 72, blood pressure , O2 saturations 94% on room air. GENERAL: The patient is alert, oriented, did not appear to be in any distress. HEENT: Clear sclerae. Oropharynx is moist. CARDIOVASCULAR: Regular rate and rhythm. CHEST: Breath sound is clear bilaterally. ABDOMEN: Soft and nontender. No distention. EXTREMITIES: No edema. Pulses clear bilaterally. LABORATORY DATA: Hemoglobin 12. Potassium 3.3, sodium 134. AST decreased from 134 to 58, ALT 284 to 189, alkaline phosphatase 236 to 205 today, total bilirubin decreased from 3.5 yesterday to 1.9 today. DIAGNOSTIC IMAGING: There are no diagnotic imaging to be reviewed today. ASSESSMENT: Atypical chest pain/abdominal pain, resolved. The patient is totally asymptomatic and tolerates diet well today without any pain. Elevation of liver profile trending downward. The patient is scheduled on MRCP. The patient was discussed with Dr. Mock, decided to conservative treatment. No surgery indication at this moment atrial fibrillation, congestive heart failure, coronary artery disease, diabetes, hypertension. PLAN: Continue to monitor electrolyte status. Continue to monitor liver function. The patient is stable prepare for discharge. The patient was at this time with Dr. Mock this morning. Job ID: [id number]
== END 2019-04-12 16:59 | disposition home or self-care (01) | DRG 446 ==
LOC: ERS 19:09 → 2NO 22:38 → OBSVTOIN 04-10 10:51
PROVIDERS: ADMIT Hospitalist; ATTEND Hospitalist
PROC: CF1CYZZ Planar Nuclear Medicine Imaging of Hepatobiliary System, All using Other Radionuclide (ICD-10-PCS; principal; 2019-04-10)
DX: K80.40 Calculus of bile duct with cholecystitis, unspecified, without obstruction (principal); I25.10 Atherosclerotic heart disease of native coronary artery without angina pectoris; E78.00 Pure hypercholesterolemia, unspecified; E87.6 Hypokalemia; I48.2 Chronic atrial fibrillation; I10 Essential (primary) hypertension; E11.9 Type 2 diabetes mellitus without complications; Z79.02 Long term (current) use of antithrombotics/antiplatelets; Z87.891 Personal history of nicotine dependence; Z95.1 Presence of aortocoronary bypass graft; Z79.01 Long term (current) use of anticoagulants; Z79.899 Other long term (current) drug therapy; I25.2 Old myocardial infarction
CPT/HCPCS: 36415; 71045; 76705; 78227; 80053; 82550; 83690; 83735; 83880; 84484; 85014; 85018; 85025; 85049; 85730; 86704; 86705; 86709; 86803; 87340; 93005; 94760; 96361; 96374; A9537; J1644; J1650; J2060; J2270; J2405; J3480; J7050

== ENCOUNTER 2019-05-26 15:36 | Inpatient (IN) | payer MEDICARE ==
[2019-05-26 16:08] LABS: Hemoglobin 15.3 g/dL (14.0-18.0); Mean Corpuscular HGB CONC 33.6 g/dL (32.0-36.0); Mean Corpuscular Volume 89.4 fL (78.0-98.0); Mean Platelet Volume 7.3 fL (7.4-10.4); Platelet Count 277 thou/uL (130-400); RBC Distribution Width 13.2 % (11.5-14.5); Red Blood Cell (RBC) Count 5.08 mill/uL (4.70-6.10); White Blood Cell (WBC) Count 16.9 thou/uL (4.8-10.8)
[2019-05-26 16:30] LABS: ALT (SGPT) 266 U/L (8-55); AST (SGOT) 112 U/L (5-34); Albumin 4.3 g/dL (3.4-4.8); Alkaline Phosphatase 239 U/L (40-150); Anion Gap 20 mmol/L (10-20); BUN (Urea Nitrogen) 32 mg/dL (8.4-25.7); Band 32 % (5-11); Calc. Creatinine Clearance 0 mL/min (70-130); Carbon Dioxide 28 mmol/L (23-31); Chloride 93 mmol/L (98-107); Estimated GFR-MDRD 60; Globulin 3.3 g/dL (2.4-3.5); Glucose 153 mg/dL (83-110); Lipase 31 U/L (8-78); Lymphocytes 2 % (21-51); MDiff Complete? YES; Monocytes 5 % (0-10); Neutrophil 61 % (42-75); Ovalocytes SLIGHT = 2-5 cells (100X) (0-1/hpf); Platelet Morphology Comment Appears Adequate; Polychromasia SLIGHT = 2-3 cells (100X) (0-2/hpf); Potassium 3.6 mmol/L (3.5-5.1); Protein, Total 7.6 g/dL (5.8-8.1); Sodium 137 mmol/L (136-145); Tear Drops SLIGHT = 2-5 cells (100X) (0-1/hpf)
--- NOTE | 2019-05-26 16:39 | ULT ---
US Gallbladder RUQ History: Right upper quadrant pain Comparison: Ultrasound April 09, 2019 Findings: Real-time grayscale and color evaluation of the right upper quadrant of the abdomen was per formed. Pancreas not well seen. Diffuse increased hepatic echotexture. Liver is enlarged measuring 19 cm in l ength. Portal vein is patent. Common bile duct measures less than 7 mm, normal for age. Gallbladder is distended with normal wall thickness. No pericholecystic fluid. No cholelithiasis is a ppreciated. Right kidney measures 10.8 x 5.1 x 5.7 cm. Impression: 1. Hepatomegaly and diffuse hepatic steatosis. 2. No cholelithiasis or cholecystitis.
[2019-05-26] MEDS ORDERED: Ondansetron ODT 4 MG TAB SL PRN (19:20)
[2019-05-26] MEDS ORDERED: Sodium Chloride 0.9% 1,000 ML IV SCH (19:20)
[2019-05-26] MEDS ORDERED: Ondansetron PF 4 MG/2 ML Vial IVP PRN ×2 (19:20→21:08)
[2019-05-26] MEDS ORDERED: Morphine 4 MG/ML VIAL SLOW IVP PRN ×2 (19:21→21:08)
[2019-05-26] MEDS ORDERED: Ondansetron ODT 4 MG TAB PO PRN (21:08)
[2019-05-26] MEDS ORDERED: Acetaminophen 500 MG TAB PO PRN (21:08)
[2019-05-26] MEDS ORDERED: hydrALAZINE 20 MG/ML VIAL SLOW IVP PRN (21:08)
[2019-05-26] MEDS ORDERED: hydrALAZINE 25 MG TAB PO PRN (21:15)
[2019-05-26] MEDS: Sodium Chloride 0.9% 1,000 ML IV SCH (21:20)
[2019-05-26] MEDS: Pantoprazole 40 MG VIAL IVP SCH (21:22)
[2019-05-26] MEDS ORDERED: HumaLOG 300 UNITS/3 ML VIAL SC PRN ×2 (21:33)
[2019-05-26] MEDS ORDERED: Dextrose 5% in Water 1,000 ML IV PRN (21:33)
[2019-05-26] MEDS ORDERED: Dextrose 50% Abboject 50 ML SYRINGE SLOW IVP PRN (21:33)
[2019-05-26 21:36] VITALS: BMI 31.1
[2019-05-26] MEDS: MEROPENEM 1 GM/50 ML 1 GM in Premix Bag 1 BAG IVPB SCH (21:57)
[2019-05-26] MEDS: Enoxaparin Sodium 100 MG/ML SYRINGE SC SCH (21:58)
--- NOTE | 2019-05-26 23:20 | HP ---
PRIMARY CARE PHYSICIAN: Dr. Proctor in [place], [place]. CHIEF COMPLAINT: Abdominal pain. HISTORY OF PRESENT ILLNESS: This is a 74-year-old male, who presents to [facility] Emergency Department in transfer from [facility] after presenting with severe mid epigastric abdominal pain. The patient was recently admitted and evaluated for transaminitis and suspected cholecystitis in March 2019. The patient was treated supportively after evaluation by the GI and General Surgery Service, undergoing a HIDA scan, which did not reveal any physiological derangement. The patient was scheduled for MRCP; however, was unable to lie flat for the MR imaging. The patient's transaminases apparently improved and the patient symptomatically improved enough to discharge home on 04/12/2019. The patient states he has had intermittent bouts of abdominal pain with associated nausea and vomiting, but no hematemesis or melena. The patient states in the last 24 hours, the abdominal pain was severe enough to bring him to the emergency department for evaluation. The patient did admit that the pain was approximately 10/10, decreasing to 3/10 after receiving morphine sulfate, normal saline and Zofran during transportation. The patient states his last normal intake was at noon on 05/26/2019 and last dose of Eliquis was in the a.m. of 05/26/2019. The patient underwent general evaluation including abdominal ultrasound in the emergency room showing mild gallbladder dilation without wall thickening. No specific evidence of cholelithiasis, and common bile duct measured at 7 mm. The patient was noted with diffuse increased hepatic echotexture consistent with hepatic steatosis. PAST MEDICAL HISTORY: 1. Transaminitis. 2. Hepatic steatosis. 3. Chronic atrial fibrillation, on chronic anticoagulation with Eliquis. 4. Coronary artery disease, status post coronary artery bypass grafting x2 vessels. 5. History of CVA requiring tPA. 6. Hyperlipidemia. 7. Hypertension. 8. Spinal stenosis. 9. Diabetes mellitus type 2. PAST SURGICAL HISTORY: 1. Status post coronary artery bypass grafting x2 vessels. 2. Status post multiple cardiac catheterizations with stent placement x4. 3. Status post hernia repair. CURRENT MEDICATIONS: 1. Amlodipine 5 mg p.o. b.i.d. 2. Eliquis 5 mg p.o. b.i.d. 3. Plavix 75 mg p.o. daily. 4. Doxazosin 4 mg p.o. b.i.d. 5. Zetia 10 mg p.o. at bedtime. 6. [place]-3 fatty acids 2 capsules p.o. at bedtime. 7. Lasix 20 mg p.o. q.48 hours. 8. Hydralazine 100 mg p.o. b.i.d. 9. Zaroxolyn 5 mg p.o. q.48 hours. 10. Multivitamin 1 tablet p.o. daily. 11. Potassium 99 mg p.o. daily. ALLERGIES: TO IODINE. FAMILY HISTORY: Positive for multiple family members with coronary artery disease. SOCIAL HISTORY: The patient is retired, residing near [place], [place]. , accompanied by his in the hospital. Former tobacco use, quitting approximately 10 years prior to this evaluation. No alcohol or illicit drug use. Functional of all activities of daily living. REVIEW OF SYSTEMS: CONSTITUTIONAL: Negative for weight loss or gain, ability to conduct usual activities. SKIN: Negative for rash, itching. EYES: Negative for double vision, pain. ENT/MOUTH: Negative for nose bleeding, neck stiffness, pain, tenderness. CARDIOVASCULAR: Negative for palpitations, dyspnea on exertion, orthopnea. RESPIRATORY: Negative for shortness of breath, wheezing, cough, hemoptysis, fever or night sweats. GASTROINTESTINAL: Negative for poor appetite, abdominal pain, heartburn, nausea, vomiting, constipation, or diarrhea. GENITOURINARY: Negative for urgency, frequency, dysuria, nocturia. MUSCULOSKELETAL: Negative for pain, swelling. NEUROLOGIC/PSYCHIATRIC: Negative for anxiety, depression. ALLERGY/IMMUNOLOGIC: Negative for skin rash, bleeding tendency. Otherwise negative except as stated per HPI. PHYSICAL EXAMINATION: VITAL SIGNS: On admission, blood pressure 138/67, pulse 78, respiratory rate 26, temperature 98.3 degrees Fahrenheit, O2 saturation 92% on room air. GENERAL APPEARANCE: This is a 74-year-old male, alert and oriented x3, pleasant, conversant, in no acute distress. HEENT: Pupils are equal, round, reactive to light and accommodation. Extraocular muscles are intact. No scleral icterus. No conjunctival injection. Nares patent. OP is clear. Oral mucosa dry. NECK: Supple. No cervical adenopathy. No thyromegaly. No carotid bruits. No JVD appreciated. Cervical spine with full active and passive range of motion. No meningeal signs noted. CHEST: Lungs are clear to auscultation bilaterally. CARDIOVASCULAR: S1 and S2 with 1 to 2/6 systolic ejection murmur in the left upper sternal border. Irregular rate and rhythm noted. ABDOMEN: Obese with tenderness to palpation in the mid epigastric and right upper quadrant. Mild left lower quadrant tenderness to palpation. Bowel sounds are positive in all 4 quadrants. No palpable mass. Mild guarding of the right upper quadrant. EXTREMITIES: Warm and dry with fair turgor. No clubbing, cyanosis, or asymmetric edema appreciated. Pulses palpable distally at the dorsalis pedis, posterior tibial, and popliteal arteries bilaterally. Capillary refill less than 2 seconds. NEUROLOGIC: Cranial nerves 2 through 12 are grossly intact. No focal or lateralizing signs appreciated. PERTINENT LAB AND X-RAY FINDINGS: Sodium 137, potassium 3.6, chloride 93, CO2 of 28, BUN 32, creatinine 1.19, estimated GFR 60, glucose 153, calcium 10.0, total bilirubin 5.0, AST 112, ALT 266, alkaline phosphatase 239, albumin 4.3, lipase 31. CBC showed a white blood cell count of 16.9, hemoglobin 15, hematocrit 45, platelet count 277 with 61% neutrophils, 32% bands. Abdominal ultrasound dated 05/26/2019 showed gallbladder distention with normal wall thickness. No cholelithiasis appreciated. Common bile duct 7 mm. Diffuse hepatic steatosis. EKG dated 05/26/2019 by my interpretation shows atrial fibrillation with controlled rate in the 90s. Attenuated R-waves noted in the precordial leads. Left axis deviation. ASSESSMENT AND PLAN: 1. Acute cholecystitis. Suspected given the patient's presentation, leukocytosis, and transaminitis. We will add meropenem 1 g IV q.8 hours. Continue intravenous normal saline at 125 mL/h. Trial of clear liquids until midnight and then n.p.o. status. Consult General Surgery and GI Service in the a.m. 2. Right upper quadrant abdominal pain. Suspect secondary to acute cholecystitis. Continue pain control with morphine sulfate 4 mg IV q.4 hours p.r.n. Clear liquids as tolerated. Serial abdominal exams. 3. Transaminitis. Suspect secondary to acute cholecystitis. Continue to trend LFTs and repeat in the a.m. 4. Chronic anticoagulation with Eliquis. Discontinue Eliquis currently. Start Lovenox 90 mg subcutaneously x1 dose now. We will hold Eliquis pending surgical evaluation. 5. Acute kidney injury. Suspect secondary to volume depletion. Avoid nephrotoxic agents and limit contrast exposure. Continue intravenous normal saline at 125 mL/h. Repeat creatinine in the a.m. 6. Diabetes mellitus type 2. Insulin sliding scale for reflexive coverage. ADA diet when tolerating p.o. intake. Accu-Cheks before meals and at bedtime. 7. Prophylaxis. Sequential compression devices while in bed. Protonix 40 mg IV b.i.d. 8. Code status is full. Surrogate medical decision maker is the patient's spouse. Job ID: [id number]
--- NOTE | 2019-05-27 00:08 | CON ---
DATE OF CONSULTATION: HISTORY OF PRESENT ILLNESS: Patient is a 74-year-old man, who was brought to the emergency department today with severe epigastric and right upper quadrant pain. Patient initially reported his pain to be 10/10. EMS gave him three different doses of morphine, which upon arrival in the emergency department, he was a 3/10 and at the time of my examination on the medicine floor, he was actually pain-free, he stated it was 0/10. Patient denies nausea, vomiting, or diarrhea. No fevers, chills, or night sweats. Patient has had a weight loss since October of 40 pounds, but he attributes this to the keto diet. The patient was evaluated by our service in March of this year for similar episodes that resolved spontaneously. The patient was asked to follow up with General Surgery and schedule possibly semi elective cholecystectomy. Patient was also evaluated by Dr. Mendoza of the Gastroenterology Service at this time. ALLERGIES: PATIENT REPORTS IODINE. CURRENT MEDICATIONS: 1. Plavix. 2. Amlodipine. 3. Hydralazine. 4. Eliquis. 5. Doxazosin. 6. Potassium chloride. 7. Nitrostat. 8. Lasix. 9. Metolazone. 10. Ezetimibe. PAST MEDICAL HISTORY: Coronary artery disease, CVA, hyperlipidemia, type 2 diabetes, and atrial fibrillation. PAST SURGICAL HISTORY: Coronary artery bypass graft four vessel, hernia repair, stent placement x4 in October of 2018, and back surgery. SOCIAL HISTORY: Patient is a former smoker, quit more than 10 years ago and denies drug or alcohol use. He lives at home with his spouse. REVIEW OF SYSTEMS: 10-point review of systems is negative, except otherwise stated. PHYSICAL EXAMINATION: VITAL SIGNS: Blood pressure 123/68, heart rate 90, respirations 20, oxygen saturation 93% on room air, and temperature is 98.5. GENERAL: The patient is resting comfortably in bed. He is awake, alert, and oriented x3. HEENT: Head is normocephalic and atraumatic. Eyes, extraocular motion intact. PERRLA bilaterally. Scant scleral icterus. Ears are atraumatic without discharge. Nose is atraumatic without discharge. Oropharynx is clear. NECK: Nontender. Trachea is midline. No JVD. No lymphadenopathy. Neck is supple. LUNGS: Clear to auscultation with good inspiratory and expiratory effort. HEART: Regular rate with an irregularly irregular rhythm consistent with his atrial fibrillation. ABDOMEN: Soft, flat, and nontender with active bowel sounds. Patient has a negative Casey sign. EXTREMITIES: Neurovascularly intact x4. BACK: Atraumatic, nontender and with no CVA tenderness. LABORATORY FINDINGS: White blood cell count 16.9, hemoglobin 15.3, hematocrit 45.4, and platelets 277. Sodium 137, potassium 3.6, chloride 93, CO2 of 28, BUN 32, creatinine 1.19, glucose 153, total bilirubin 5, AST 112, ALT 266, alk phos 239 , and lipase 31. RADIOGRAPHIC REPORTS: Ultrasound of the right upper quadrant shows hepatomegaly and diffuse hepatic steatosis. No cholelithiasis or cholecystitis. The patient's common bile duct measured 7 mm, which is normal for his age. ASSESSMENT AND PLAN: 1. Elevated bilirubin. 2. Transaminitis. 3. Abdominal pain, improved. PLAN: There are currently no surgical indications for the patient. At this time, we would recommend GI consultation. Patient and family are informed by me that he has been made n.p.o. after midnight. This is appropriate until evaluated by Gastroenterology. We will repeat his labs in the morning and we will be available as needed. Job ID: [id number] [facility]
[2019-05-27] MEDS: Sodium Chloride 0.9% 1,000 ML IV SCH ×3 (05:17→18:28)
[2019-05-27] MEDS: MEROPENEM 1 GM/50 ML 1 GM in Premix Bag 1 BAG IVPB SCH ×3 (05:17→22:00)
[2019-05-27 06:52] LABS: Hemoglobin 12.5 g/dL (14.0-18.0); Mean Corpuscular HGB CONC 32.8 g/dL (32.0-36.0); Mean Corpuscular Hemoglobin 28.7 pg (27.0-31.0); Mean Corpuscular Volume 87.4 fL (78.0-98.0); Mean Platelet Volume 7.7 fL (7.4-10.4); Platelet Count 190 thou/uL (130-400); RBC Distribution Width 13.1 % (11.5-14.5); Red Blood Cell (RBC) Count 4.35 mill/uL (4.70-6.10); White Blood Cell (WBC) Count 8.2 thou/uL (4.8-10.8)
[2019-05-27 07:13] LABS: ALT (SGPT) 233 U/L (8-55); AST (SGOT) 129 U/L (5-34); Albumin 3.5 g/dL (3.4-4.8); Alkaline Phosphatase 253 U/L (40-150); Anion Gap 14 mmol/L (10-20); BUN (Urea Nitrogen) 22 mg/dL (8.4-25.7); Bilirubin, Direct 4.8 mg/dL (0.1-0.3); Bilirubin, Total 6.4 mg/dL (0.2-1.2); Calc. Creatinine Clearance 81 mL/min (70-130); Calcium 8.8 mg/dL (7.8-10.44); Carbon Dioxide 28 mmol/L (23-31); Chloride 98 mmol/L (98-107); Estimated GFR-MDRD 72; Glucose 117 mg/dL (83-110); Magnesium 2.3 mg/dL (1.6-2.6); Phosphorus 2.9 mg/dL (2.3-4.7); Potassium 3.3 mmol/L (3.5-5.1); Protein, Total 5.7 g/dL (5.8-8.1); Sodium 137 mmol/L (136-145)
[2019-05-27 07:49] LABS: Band 7 % (5-11); Lymphocytes 18 % (21-51); MDiff Complete? YES; Monocytes 6 % (0-10); Neutrophil 67 % (42-75); RBC Morphology Normal; Reactive Lymphocytes 2 % (0-10)
[2019-05-27] MEDS ORDERED: Potassium Phosphate 15 MMOL in Sodium Chloride 0.9% 250 ML 250 ML IVPB SCH (08:00)
[2019-05-27] MEDS: Amlodipine 5 MG TAB PO SCH ×3 (09:37→21:14)
[2019-05-27] MEDS: Pantoprazole 40 MG VIAL IVP SCH ×2 (09:38→21:16)
[2019-05-27] MEDS: Sodium Chloride 0.9% (PF) 10 ML VIAL FS PRN (09:38)
[2019-05-27] MEDS: Doxazosin Mesylate 4 MG TAB PO SCH ×2 (09:42→21:15)
[2019-05-27] MEDS: Enoxaparin Sodium 100 MG/ML SYRINGE SC SCH ×2 (09:44→21:15)
--- NOTE | 2019-05-27 16:38 | CON ---
DATE OF CONSULTATION: 05/27/2019 SUBJECTIVE: This is a 74-year-old gentleman, who came into the emergency room due to severe epigastric pain. The patient denies any nausea, vomiting, or diarrhea. No fever or chills. The patient has a history of elevated LFT back in March, with the HIDA scan of gallbladder un-visualized, hepatocellular dysfunction, gallbladder activity not seen. Ultrasound yesterday show normal common bile duct, gallbladder is distended with normal wall thickness. No pericholecystic fluid. No cholelithiasis is appreciated. The patient reports he had been taking a lot of Tylenol at home due to pain. The patient has a history of by bypass with four-vessel, hernia repair, stent placement x 4, diabetes, and AFib. When coming to the hospital, the patient is feeling better. The pain has subsided. No nausea or vomiting. Vitals stable. PHYSICAL EXAMINATION: GENERAL: The patient is lying down in bed, comfortable, no acute distress. VITAL SIGNS: Pain is 2 to 3/10. Temperature 98.2, heart rate 79, O2 saturation 96% on room air, and blood pressure 109/72. LUNGS: Clear bilaterally. HEART: Irregular rate and rhythm. CHEST: There is a healing scar in the middle of the chest. ABDOMEN: Soft, nondistended. Mild tender to touch. EXTREMITIES: Neurovascularly intact. ASSESSMENT: 1. Drug-induced hepatitis. 2. History of coronary artery disease with bypass surgery x4. 3. Diabetes. 4. Atrial fibrillation. 5. Hernia repair. PLAN: Continue supportive care Discontinue Tylenol this morning. Recommend consult GI at this time. General Surgery will sign off at this time. Please do not hesitate to call us if a new finding is emerged. Job ID: [id number] [facility]
--- NOTE | 2019-05-27 20:29 | PDOC.HOSPP ---
- Subjective Encounter Date: 05/27/19 Encounter Time: 20:20 Subjective: f/u for acute cholecystitis and transaminitis on Meropenem. Feels better overall but transaminases remain elevated. No surgical intervention per Gen surgery recs. - Objective Vital Signs & Weight: Vital Signs (12 hours) Temp Pulse Resp BP BP BP Pulse Ox 05/27/19 19:45 98.2 F 75 20 172/82 H 98 05/27/19 16:00 98.1 F 61 18 121/73 94 L 05/27/19 09:37 79 109/72 Weight Admit Weight 199 lb Weight 199 lb I&O: 05/26/19 05/27/19 05/28/19 06:59 06:59 06:59 Intake Total 2329 1600 Balance 2329 1600 Result Diagrams: 05/27/19 06:28 05/27/19 06:28 Additional Labs: Accuchecks 05/27/19 05/27/19 05/27/19 17:02 12:04 04:17 POC Glucose 90 102 139 H 05/26/19 21:54 POC Glucose 133 H Laboratory Tests 05/26/19 05/26/19 05/27/19 15:57 15:57 06:28 WBC 16.9 H Band Neuts % (Manual) 32 H 7 Potassium 3.6 Creatinine 1.19 Total Bilirubin 5.0 H AST 112 H ALT 266 H Alkaline Phosphatase 239 H 05/27/19 06:28 WBC Band Neuts % (Manual) Potassium Creatinine Total Bilirubin 6.4 H AST 129 H ALT 233 H Alkaline Phosphatase 253 H ROS - Medication Medications: Active Medications Generic Name Dose Route Start Last Admin Trade Name Freq PRN Reason Stop Dose Admin Amlodipine Besylate 5 mg 05/27/19 09:00 05/27/19 09:37 Norvasc PO Not Given BID VLADISLAV Doxazosin Mesylate 4 mg 05/27/19 09:00 05/27/19 09:42 Cardura PO 4 mg BID VLADISLAV Administration Enoxaparin Sodium 90 mg 05/26/19 21:00 05/27/19 09:44 Lovenox SC Not Given 0900,2100 VLDAISLAV Meropenem 1 gm/ Device 50 mls @ 100 mls/hr 05/26/19 22:00 05/27/19 14:37 IVPB 50 mls Q8HR VLADISLAV Administration Sodium Chloride 1,000 mls @ 125 mls/hr 05/26/19 21:08 05/27/19 18:28 Normal Saline 0.9% IV 1,000 mls .Q8H VLADISLAV Administration Ondansetron HCl 4 mg 05/26/19 21:08 05/26/19 22:08 Zofran IVP 4 mg Q6H PRN Administration Nausea/Vomiting Pantoprazole Sodium 40 mg 05/26/19 21:00 05/27/19 09:38 Protonix IVP 40 mg Q12HR VLADISLAV Administration Sodium Chloride 10 ml 05/26/19 21:12 05/27/19 09:38 Normal Saline Pf FS 10 ml PRN PRN Administration RECONSTITUTION - Exam NAD, awake alert Eye: PERRL, anicteric sclera ENT: normocephalic atraumatic, no oropharyngeal lesions Neck: supple, symmetric, no JVD, no thyromegaly, no lymphadenopathy Heart: no gallops, no rubs, irregular, murmur present Heart - other findings: II/ YUNIOR Respiratory: CTAB, no wheezes, no rales, no ronchi, normal chest expansion Gastrointestinal: soft, non-distended, normal bowel sounds, no palpable masses Gastrointestinal - other findings: Mild TTP in RUQ Extremities: no cyanosis, no clubbing, no edema Skin: normal turgor, no lesions Neurological: CN's grossly intact, no focal deficits, no new deficit Musculoskeletal: normal tone, normal strength Psychiatric: normal affect, A&O x 3 Hosp A/P (1) Acute cholecystitis Code(s): K81.0 - ACUTE CHOLECYSTITIS Status: Acute Plan: Suspected, continue Meropenem IV, await potential ERCP (2) Hypokalemia Code(s): E87.6 - HYPOKALEMIA Status: Acute Plan: KCL replacement, serial K+ level (3) Transaminitis Code(s): R74.0 - NONSPEC ELEV OF LEVELS OF TRANSAMNS & LACTIC ACID DEHYDRGNSE Status: Acute Plan: Persistent, likely CBD with sludge or stricture, likely will need ERCP evaluation (4) RUQ abdominal pain Code(s): R10.11 - RIGHT UPPER QUADRANT PAIN Status: Acute Plan: See #1 (5) MICHEAL (acute kidney injury) Code(s): N17.9 - ACUTE KIDNEY FAILURE, UNSPECIFIED Status: Acute Plan: Improved, continue low-volume IVF's, avoid nephrotoxic meds and limit contrast exposure (6) Chronic anticoagulation Code(s): Z79.01 - [employer] (CURRENT) USE OF ANTICOAGULANTS Status: Chronic Plan: Eliquis on hold, continue Lovenox bridge (7) Atrial fibrillation Code(s): I48.91 - UNSPECIFIED ATRIAL FIBRILLATION Status: Chronic Qualifiers: Atrial fibrillation type: chronic Qualified Code(s): I48.2 - Chronic atrial fibrillation Plan: Resume Amlodipine - Plan plan discussed w/ family, continue antibiotics, out of bed/ambulate, DVT proph w /SCDs Stable currently Continue Meropenem IV Await GI evaluation Clear liquids Continue Lovenox bridge AM lab: CMP
--- NOTE | 2019-05-28 03:24 | CON ---
DATE OF CONSULTATION: 05/27/2019 CHIEF COMPLAINT: Abdominal pain. HISTORY OF PRESENT ILLNESS: Mr. Brunson is a 74-year-old man who has had an onset of epigastric right upper quadrant abdominal pain yesterday afternoon. He has associated nausea and dry heaves with that. He came in to the emergency room by ambulance. He received 3 doses of morphine in the ambulance, but after arriving to the ER the pain pretty much went away. He had no diarrhea, constipation or blood in the stool associated with that. No fever. He had a similar presentation at the end of March, however, again this pain went away at that time and he was ultimately discharged. He has lost 40 pounds over the last 8 months, which he did states he did on purpose with the keto diet. He quit the keto diet 2 weeks ago and transitioned to a low carb diet. MRCP was requested. However, his liver tests were trending down and his abdominal pain was improving and the patient stated he could not do the MRI due to claustrophobia. Therefore, the MRCP was not done. The patient has an iodine contrast allergy as well. The patient was noted to have elevated white blood cell count yesterday and he was started on antibiotics as well. His white blood cell count is normal today. PAST MEDICAL HISTORY: Atrial fibrillation on Eliquis. His last dose of Eliquis was yesterday morning. Coronary artery disease, status post coronary artery bypass graft, history of stroke treated with tPA, hyperlipidemia, hypertension, spinal stenosis, diabetes mellitus type 2. PAST SURGICAL HISTORY: Hernia repair, cardiac catheterization, coronary artery bypass graft. FAMILY HISTORY: Negative for GI malignancy. SOCIAL HISTORY: No alcohol or drugs. Quit tobacco years ago. ALLERGIES: IODINE. MEDICATIONS: At home: 1. Amlodipine. 2. Eliquis, last dose was yesterday morning. 3. Plavix, last dose also was yesterday morning. 4. Doxazosin. 5. Zetia. 6. [place]-3 fatty acid. 7. Lasix. 8. Hydralazine. 9. Zaroxolyn. 10. Multivitamin. 11. Potassium. REVIEW OF SYSTEMS: Negative x10 systems reviewed except as stated in history of present illness. PHYSICAL EXAMINATION: VITAL SIGNS: Temperature is 98.2, pulse 85, blood pressure 104/71. GENERAL: He is no acute distress. Alert and oriented x3. HEENT: Eyes have scleral icterus. Oropharynx is clear without lesions. No cervical or supraclavicular lymphadenopathy. He is jaundiced. Does scratch his arms intermittently. LUNGS: Clear to auscultation bilaterally. HEART: Regular rate and rhythm without murmur. ABDOMEN: Soft, mild tenderness in the right upper quadrant and in the left lower quadrant without guarding. Bowel sounds are present. EXTREMITIES: Trace lower extremity edema. LABORATORY DATA: White blood cell count 8.2, hemoglobin 12.5, platelets 190. Creatinine is 1.0. Bilirubin 0.4, AST 129, ALT 233, alkaline phosphatase 253, direct bilirubin 4.8, albumin 3.5, lipase 31. Viral hepatitis screen was negative with the previous hospital stay. IMPRESSION: 1. Abnormal liver function test. He has mixed cholestatic and hepatocellular injury pattern. Given the intermittent right upper quadrant abdominal pain, biliary obstruction is considered as the likely possibility. Ultrasound of the abdomen; however, only shows the common bile duct to measure 7 mm. No cholelithiasis is seen in the gallbladder. It is unclear, if this is actually a primary hepatocellular liver problem rather than a biliary problem at this point. Ideally, we would follow through with MRI with MRCP. However, the patient states that he is unable to perform this due to severe claustrophobia and even with benzodiazepines does not wish to attempt MRI. CT scan with iodinated contrast would be another option to try to get a better imaging of the biliary system. However, he has a severe iodine contrast allergy. We might ultimately have to proceed with ERCP at this point to rule out a biliary stone or obstructive process. 2. Atrial fibrillation. Last dose of Eliquis was yesterday morning. Last dose of Plavix was yesterday morning. RECOMMENDATIONS: 1. We will tentatively schedule an ERCP for Monday. 2. Continue to follow the trend of his liver tests. Job ID: [id number]
[2019-05-28] MEDS: Sodium Chloride 0.9% 1,000 ML IV SCH ×3 (05:16→20:11)
[2019-05-28] MEDS: MEROPENEM 1 GM/50 ML 1 GM in Premix Bag 1 BAG IVPB SCH ×3 (05:25→21:46)
[2019-05-28 07:23] LABS: ALT (SGPT) 142 U/L (8-55); AST (SGOT) 45 U/L (5-34); Albumin 3.3 g/dL (3.4-4.8); Alkaline Phosphatase 206 U/L (40-150); Anion Gap 12 mmol/L (10-20); BUN (Urea Nitrogen) 15 mg/dL (8.4-25.7); Bilirubin, Total 2.3 mg/dL (0.2-1.2); Calc. Creatinine Clearance 88 mL/min (70-130); Calcium 8.6 mg/dL (7.8-10.44); Carbon Dioxide 24 mmol/L (23-31); Chloride 99 mmol/L (98-107); Estimated GFR-MDRD 79; Globulin 2.6 g/dL (2.4-3.5); Glucose 98 mg/dL (83-110); Potassium 3.4 mmol/L (3.5-5.1); Protein, Total 5.9 g/dL (5.8-8.1); Sodium 132 mmol/L (136-145)
[2019-05-28] MEDS: Amlodipine 5 MG TAB PO SCH ×4 (08:44→20:14)
[2019-05-28] MEDS: Enoxaparin Sodium 100 MG/ML SYRINGE SC SCH ×2 (08:45→20:14)
[2019-05-28] MEDS: Doxazosin Mesylate 4 MG TAB PO SCH ×2 (08:45→20:14)
[2019-05-28] MEDS: Sodium Chloride 0.9% (PF) 10 ML VIAL FS PRN (08:46)
[2019-05-28] MEDS: Pantoprazole 40 MG VIAL IVP SCH ×2 (08:46→20:12)
--- NOTE | 2019-05-28 19:02 | PDOC.HOSPP ---
- Subjective Encounter Date: 05/28/19 Encounter Time: 19:00 Subjective: f/u for acute cholecystitis on Meropenem IV. Feels better overall but transaminases remain elevated but trending downward. - Objective Vital Signs & Weight: Vital Signs (12 hours) Temp Pulse Resp BP BP Pulse Ox 05/28/19 16:00 98.0 F 91 18 118/73 94 L 05/28/19 12:00 98.9 F 82 18 128/84 97 05/28/19 08:44 90 115/59 L 05/28/19 08:00 98.3 F 90 18 115/69 95 Weight Admit Weight 199 lb Weight 199 lb I&O: 05/27/19 05/28/19 05/29/19 06:59 06:59 06:59 Intake Total 2325 2971 Balance 2328 2975 Result Diagrams: 05/27/19 06:28 05/28/19 06:20 Additional Labs: Accuchecks 05/28/19 05/28/19 05/28/19 16:18 12:02 04:22 POC Glucose 94 113 H 102 05/27/19 19:55 POC Glucose 171 H ROS - Medication Medications: Active Medications Generic Name Dose Route Start Last Admin Trade Name Freq PRN Reason Stop Dose Admin Amlodipine Besylate 5 mg 05/27/19 09:00 05/28/19 08:44 Norvasc PO Not Given BID VLADISLAV Amlodipine Besylate 5 mg 05/27/19 21:00 05/28/19 08:44 Norvasc PO Not Given BID VLADISLAV Doxazosin Mesylate 4 mg 05/27/19 09:00 05/28/19 08:45 Cardura PO 4 mg BID VLADISLAV Administration Enoxaparin Sodium 90 mg 05/26/19 21:00 05/28/19 08:45 Lovenox SC Not Given 0900,2100 VLADISLAV Meropenem 1 gm/ Device 50 mls @ 100 mls/hr 05/26/19 22:00 05/28/19 13:53 IVPB 50 mls Q8HR VLADISLAV Administration Sodium Chloride 1,000 mls @ 125 mls/hr 05/26/19 21:08 05/28/19 12:47 Normal Saline 0.9% IV 1,000 mls .Q8H VLADISLAV Administration Ondansetron HCl 4 mg 05/26/19 21:08 05/26/19 22:08 Zofran IVP 4 mg Q6H PRN Administration Nausea/Vomiting Pantoprazole Sodium 40 mg 05/26/19 21:00 05/28/19 08:46 Protonix IVP 40 mg Q12HR VLADISLAV Administration Potassium Chloride 20 meq 05/28/19 08:00 05/28/19 08:43 Klor-Con PO 20 meq QAM-WM VLADISLAV Administration Sodium Chloride 10 ml 05/26/19 21:12 05/28/19 08:46 Normal Saline Pf FS 10 ml PRN PRN Administration RECONSTITUTION - Exam NAD, awake alert Eye: PERRL, anicteric sclera ENT: normocephalic atraumatic, no oropharyngeal lesions Neck: supple, symmetric, no JVD, no thyromegaly, no lymphadenopathy Heart: irregular, murmur present Heart - other findings: II/ YUNIOR Respiratory: CTAB, no wheezes, no rales, no ronchi, normal chest expansion Gastrointestinal: soft, non-distended, normal bowel sounds, no palpable masses Extremities: no cyanosis, no clubbing, no edema Skin: normal turgor, no lesions Neurological: CN's grossly intact, no focal deficits, no new deficit Musculoskeletal: normal tone, normal strength, no muscle wasting Psychiatric: normal affect, A&O x 3 Hosp A/P (1) Acute cholecystitis Code(s): K81.0 - ACUTE CHOLECYSTITIS Status: Acute Plan: Improved, continue Meropenem IV, plan for ERCP in am 05/29/19 (2) Hypokalemia Code(s): E87.6 - HYPOKALEMIA Status: Acute Plan: Increase KCL 20meq BID (3) Transaminitis Code(s): R74.0 - NONSPEC ELEV OF LEVELS OF TRANSAMNS & LACTIC ACID DEHYDRGNSE Status: Acute Plan: Improved trend, plan for ERCP in am 05/29/19 (4) RUQ abdominal pain Code(s): R10.11 - RIGHT UPPER QUADRANT PAIN Status: Acute Plan: Improved (5) MICHEAL (acute kidney injury) Code(s): N17.9 - ACUTE KIDNEY FAILURE, UNSPECIFIED Status: Acute Plan: Resolved (6) Chronic anticoagulation Code(s): Z79.01 - LICENSED PSYCHOLOGIST (CURRENT) USE OF ANTICOAGULANTS Status: Chronic (7) Atrial fibrillation Code(s): I48.91 - UNSPECIFIED ATRIAL FIBRILLATION Status: Chronic Qualifiers: Atrial fibrillation type: chronic Qualified Code(s): I48.2 - Chronic atrial fibrillation - Plan plan discussed w/ family, continue antibiotics, out of bed/ambulate Stable currently Continue Meropenem IV Plan for ERCP in am 05/29/19 Clear liquids as tolerated Continue Lovenox bridge Decrease IVF's 50ml/h AM lab: CMP
[2019-05-29] MEDS: MEROPENEM 1 GM/50 ML 1 GM in Premix Bag 1 BAG IVPB SCH ×3 (05:08→21:50)
[2019-05-29 06:13] LABS: ALT (SGPT) 106 U/L (8-55); AST (SGOT) 28 U/L (5-34); Albumin 3.6 g/dL (3.4-4.8); Alkaline Phosphatase 199 U/L (40-150); Anion Gap 12 mmol/L (10-20); BUN (Urea Nitrogen) 12 mg/dL (8.4-25.7); Bilirubin, Total 1.5 mg/dL (0.2-1.2); Calc. Creatinine Clearance 77 mL/min (70-130); Calcium 8.9 mg/dL (7.8-10.44); Carbon Dioxide 24 mmol/L (23-31); Chloride 98 mmol/L (98-107); Estimated GFR-MDRD 68; Globulin 2.9 g/dL (2.4-3.5); Glucose 111 mg/dL (83-110); Potassium 3.8 mmol/L (3.5-5.1); Protein, Total 6.5 g/dL (5.8-8.1); Sodium 130 mmol/L (136-145)
[2019-05-29] MEDS ORDERED: Indomethacin 50 MG SUPP ONE (06:59)
[2019-05-29] MEDS ORDERED: Iothalamate Meglumine 60% 50 ML VIAL FS ONE ×2 (06:59→08:37)
[2019-05-29] MEDS ORDERED: Fentanyl 100 MCG/2 ML VIAL ONE (07:21)
[2019-05-29] MEDS ORDERED: Ondansetron PF 4 MG/2 ML Vial ONE (09:19)
--- NOTE | 2019-05-29 09:53 | RAD ---
ERCP: Seven fluoroscopic images from OR presented. INDICATION: Fluoroscopic imaging during ERCP procedure. Gallstones and common duct stones. FINDINGS/IMPRESSION: Images of the common duct show filling defects in the lower common duct consistent with retained calc dunia. POS: IRASEMA
--- NOTE | 2019-05-29 11:24 | OP ---
DATE OF PROCEDURE: 05/29/2019 PROCEDURES PERFORMED: Endoscopic retrograde cholangiopancreatography with sphincterotomy and stone extraction. PREMEDICATION: Given by Anesthesiology Department. PREPROCEDURE DIAGNOSIS: Right upper quadrant pain associated with abnormal liver profile. POSTPROCEDURE DIAGNOSIS: Choledocholithiasis, with 4 large stones, crushed and extracted. DESCRIPTION OF PROCEDURE: Written consents were obtained prior to procedure. After adequate sedation, a side-viewing endoscope was advanced down the stomach into the duodenum. The ampulla was visualized and appeared normal. Selective cannulation was performed into the common bile duct with ease. The pancreatic duct was never entered. Opacification of the bile duct showed a uniformly dilated duct approximately 12 mm. Four large filling defects were noted. A sphincterotomy was performed at 12 o'clock position with good hemostasis. Using a 15-mm balloon, only one smaller stone was able to be extracted. The remaining 3 stones were crushed using a basket. The remainder of the debris were removed with a 15-mm balloon. Multiple debris and sludges were removed. Repeat cholangiogram was normal. The catheter was removed with free-flowing of bowel in contrast. There was no bleeding during or after the procedure. The instruments were removed. The patient tolerated the procedure well. ASSESSMENT: Large choledocholithiasis, 4 stones, status post sphincterotomy, stone crushing and extraction. RECOMMENDATIONS: 1. Resume diet. 2. Can resume Eliquis and Plavix tomorrow and be discharged. Job ID: [id number]
[2019-05-29] MEDS: Amlodipine 5 MG TAB PO SCH ×4 (11:31→20:25)
[2019-05-29] MEDS: Doxazosin Mesylate 4 MG TAB PO SCH ×2 (11:32→20:24)
[2019-05-29] MEDS: Enoxaparin Sodium 100 MG/ML SYRINGE SC SCH ×2 (11:32→20:24)
[2019-05-29] MEDS: Pantoprazole 40 MG VIAL IVP SCH ×2 (11:35→20:32)
--- NOTE | 2019-05-29 11:37 | PDOC.HOSPP ---
- Subjective Encounter Date: 05/29/19 Encounter Time: 11:35 Subjective: post ERCP, no abd pain - Objective Vital Signs & Weight: Vital Signs (12 hours) Temp Pulse Resp BP Pulse Ox 05/29/19 11:33 92 05/29/19 11:31 92 05/29/19 10:00 96 05/29/19 04:00 99.2 F 92 20 146/85 H 95 Weight Admit Weight 199 lb Weight 199 lb I&O: 05/28/19 05/29/19 05/30/19 06:59 06:59 06:59 Intake Total 2975 3275 Balance 2975 3275 Result Diagrams: 05/27/19 06:28 05/29/19 05:06 Additional Labs: Accuchecks 05/29/19 05/28/19 05/28/19 04:46 19:43 16:18 POC Glucose 117 H 121 H 94 05/28/19 12:02 POC Glucose 113 H ROS - Medication Medications: Active Medications Generic Name Dose Route Start Last Admin Trade Name Freq PRN Reason Stop Dose Admin Amlodipine Besylate 5 mg 05/27/19 09:00 05/29/19 11:31 Norvasc PO 5 mg BID VLADISLAV Administration Amlodipine Besylate 5 mg 05/27/19 21:00 05/29/19 11:33 Norvasc PO 5 mg BID VLADISLAV Administration Doxazosin Mesylate 4 mg 05/27/19 09:00 05/29/19 11:32 Cardura PO 4 mg BID VLADISLAV Administration Enoxaparin Sodium 90 mg 05/26/19 21:00 05/29/19 11:32 Lovenox SC 90 mg 0900,2100 VLADISLAV Administration Meropenem 1 gm/ Device 50 mls @ 100 mls/hr 05/26/19 22:00 05/29/19 05:08 IVPB 50 mls Q8HR VLADISLAV Administration Sodium Chloride 1,000 mls @ 50 mls/hr 05/28/19 19:16 05/28/19 20:11 Normal Saline 0.9% IV 1,000 mls .Q20H VLADISLAV Administration Ondansetron HCl 4 mg 05/26/19 21:08 05/26/19 22:08 Zofran IVP 4 mg Q6H PRN Administration Nausea/Vomiting Pantoprazole Sodium 40 mg 05/26/19 21:00 05/28/19 20:12 Protonix IVP 40 mg Q12HR VLADISLAV Administration Potassium Chloride 20 meq 05/28/19 21:00 05/29/19 11:33 Klor-Con PO 20 meq BID VLADISLAV Administration Sodium Chloride 10 ml 05/26/19 21:12 05/28/19 08:46 Normal Saline Pf FS 10 ml PRN PRN Administration RECONSTITUTION - Exam Neck: no JVD Heart: RRR, no murmur Respiratory: CTAB Gastrointestinal: soft, normal bowel sounds Extremities: no edema Hosp A/P (1) Cholangitis Code(s): K83.09 - OTHER CHOLANGITIS Status: Acute (2) Common bile duct calculi Code(s): K80.50 - CALCULUS OF BILE DUCT W/O CHOLANGITIS OR CHOLECYST W/O OBST Status: Acute (3) Abdominal pain Code(s): R10.9 - UNSPECIFIED ABDOMINAL PAIN Status: Acute Qualifiers: Abdominal location: generalized Qualified Code(s): R10.84 - Generalized abdominal pain (4) CAD (coronary artery disease) Code(s): I25.10 - ATHSCL HEART DISEASE OF [place] CORONARY ARTERY W/O ANG PCTRS Status: Acute Qualifiers: Coronary Disease-Associated Artery/Lesion type: [place] artery [place] vs. transplanted heart: [place] heart Associated angina: without angina Qualified Code(s): I25.10 - Atherosclerotic heart disease of [place] coronary artery without angina pectoris (5) Transaminitis Code(s): R74.0 - NONSPEC ELEV OF LEVELS OF TRANSAMNS & LACTIC ACID DEHYDRGNSE Status: Acute - Plan post ERCP- successful retreval 4 stones cont iv antibx discuss plans with GI
[2019-05-29] MEDS: Sodium Chloride 0.9% 1,000 ML IV SCH (15:42)
[2019-05-30] MEDS: MEROPENEM 1 GM/50 ML 1 GM in Premix Bag 1 BAG IVPB SCH (06:14)
[2019-05-30] MEDS: Doxazosin Mesylate 4 MG TAB PO SCH (08:19)
[2019-05-30] MEDS: Amlodipine 5 MG TAB PO SCH (08:20)
[2019-05-30] MEDS: Pantoprazole 40 MG VIAL IVP SCH (08:21)
[2019-05-30] MEDS: Enoxaparin Sodium 100 MG/ML SYRINGE SC SCH (08:21)
--- NOTE | 2019-05-30 11:04 | DIS ---
DATE OF ADMISSION: 05/26/2019 DATE OF DISCHARGE: 05/30/2019 PRIMARY CARE PROVIDER: Dr. Demetrius Proctor. FINAL DIAGNOSES: Cholangitis; common bile duct stones; abdominal pain; coronary artery disease; acute kidney injury; diabetes mellitus, type 2; chronic anticoagulation; chronic atrial fibrillation. DISCHARGE MEDICATIONS: Same as his home medicines. 1. Metformin 500 mg twice a day. 2. Hydralazine 100 mg twice a day. 3. Potassium chloride 20 mEq a day. 4. Zaroxolyn 5 mg every other day. 5. Furosemide 20 mg every other day. 6. Zetia 10 mg a day. 7. Doxazosin 4 mg twice a day. 8. Plavix 75 mg a day. 9. Eliquis 5 mg twice a day. 10. Norvasc 5 mg p.o. b.i.d. ALLERGIES: TO IODINE CONTRAST. CODE STATUS: Full. DIET: Diabetic. PENDING AT THE TIME OF DISCHARGE: Nothing. HOSPITAL COURSE: The patient admitted to [facility] through [facility] with abdominal pain. He was initially thought to have acute cholecystitis. Abdominal ultrasound revealed no cholelithiasis or cholecystitis. Seen in consultation by General Surgery, recommended GI consultation. Seen in consultation by Dr. Evens Glass, who recommended MRI with MRCP. However, the patient has severe claustrophobia. On 05/29/2019, ERCP was performed by Dr. Osmel Mendoza, which revealed large choledocholithiasis, 4 stones. Underwent sphincterotomy, stone crushing and extraction. The patient has been doing well postop. No fever, etc. The patient is being discharged home on his usual home medicines. It is recommended he follow up with his primary care physician in 1 week, with Gastroenterology followup to be arranged. The patient is doing well at the time of discharge, vital signs are stable, abdomen is benign. Job ID: [id number]
[2019-05-30 11:31] VITALS: BP 109/67; TEMP 97.8
--- NOTE | 2019-06-01 13:15 | EKG ---
Test Reason : EMS REPORTOF VTACH Blood Pressure : / mmHG Vent. Rate : 097 BPM Atrial Rate : 108 BPM P-R Int : 000 ms QRS Dur : 106 ms QT Int : 376 ms P-R-T Axes : 000 -21 150 degrees QTc Int : 477 ms Atrial fibrillation Low voltage QRS Inferior infarct , age undetermined Cannot rule out Anterior infarct , age undetermined Abnormal ECG Artifact Confirmed by ABBY MCMAHON, SHARI ([id number]), book editor DALLAS WISEMAN ([id number]) on 06/01/2019 1:14:55 PM Referred By: ABBY Confirmed By:SHARI MORA MD
== END 2019-05-30 12:06 | disposition home or self-care (01) | DRG 445 ==
LOC: ERS 15:36 → T4-B 18:55
PROVIDERS: ADMIT Family Medicine; ATTEND Family Medicine
PROC: 0FC98ZZ Extirpation of Matter from Common Bile Duct, Via Natural or Artificial Opening Endoscopic (ICD-10-PCS; principal; 2019-05-29)
PROC: 0F798ZZ Dilation of Common Bile Duct, Via Natural or Artificial Opening Endoscopic (ICD-10-PCS; 2019-05-29)
DX: K80.40 Calculus of bile duct with cholecystitis, unspecified, without obstruction (principal); N17.9 Acute kidney failure, unspecified; I48.2 Chronic atrial fibrillation; I25.10 Atherosclerotic heart disease of native coronary artery without angina pectoris; I10 Essential (primary) hypertension; E11.9 Type 2 diabetes mellitus without complications; D72.829 Elevated white blood cell count, unspecified; K71.6 Toxic liver disease with hepatitis, not elsewhere classified; E87.6 Hypokalemia; R74.0 Nonspecific elevation of levels of transaminase and lactic acid dehydrogenase [LDH]; F40.240 Claustrophobia; Z79.01 Long term (current) use of anticoagulants; Z95.1 Presence of aortocoronary bypass graft; Z86.73 Personal history of transient ischemic attack (TIA), and cerebral infarction without residual deficits; Z95.5 Presence of coronary angioplasty implant and graft; Z79.02 Long term (current) use of antithrombotics/antiplatelets; Z91.041 Radiographic dye allergy status; I25.2 Old myocardial infarction; E78.00 Pure hypercholesterolemia, unspecified; E86.9 Volume depletion, unspecified; Z87.891 Personal history of nicotine dependence; K70.10 Alcoholic hepatitis without ascites
CPT/HCPCS: 36415; 36416; 74330; 76705; 80048; 80053; 80076; 83690; 83735; 84100; 85007; 85025; 85027; 93005; C9113; J1610; J1650; J2185; J2405; J3010; J7050